=== PATIENT | female | born 1950 | race Caucasian/White ===

== ENCOUNTER → 2020-05-18 12:27 | Outpatient (CLI) | payer MEDICARE, SELFPAY ==
--- NOTE | 2020-05-18 12:34 | XR_ITS ---
PROCEDURE: XR CHEST 2V CLINICAL HISTORY: SCREENING FOR LUNG CA COMPARISON: No exams were available for comparison FINDINGS: The cardiomediastinal silhouette and pulmonary vascularity are within normal limits. The lungs are clear without infiltrates, suspicious nodules, or pleural effusions. There is calcified granuloma in the right middle lobe. No acute bony findings. IMPRESSION: No acute findings. Dictated by: Jesse Esqueda MD 05/18/2020 13:49 Jesse Esqueda MD in [place] 05/18/2020 13:49
== END ==
PROVIDERS: PCP Nurse Practitioner Family; Visit Provider Nurse Practitioner Family
DX: Z12.2 Encounter for screening for malignant neoplasm of respiratory organs (principal)
CPT/HCPCS: 71046

== ENCOUNTER → 2021-03-14 10:09 | Outpatient (CLI) | payer MEDICARE, SELFPAY ==
--- NOTE | 2021-03-14 10:18 | US_ITS ---
APPROVED REPORT Exam Type: Ankle to Brachial Index Hoof And Shoe Inspector: RT Yefri(R) Indications HLD Pressures/Indices Right Indices Left Indices Brachial 155.00 mmHg Brachial 158.00 mmHg Low Thigh 164.00 mmHg 1.04 Low Thigh 148.00 mmHg 0.94 Calf 178.00 mmHg 1.13 Calf 177.00 mmHg 1.12 Ankle(PT) 171.00 mmHg 1.08 Ankle(PT) 193.00 mmHg 1.22 Ankle(DP) 163.00 mmHg 1.03 Ankle(DP) 176.00 mmHg 1.11 Digit 98.00 mmHg 0.62 Digit 113.00 mmHg 0.72 Findings RT RONNY=1.08 LT RONNY=1.22 RT TPI=0.62 LT TPI=0.72 Normal pulses and waveforms throughout exam. Conclusion RT RONNY=1.08 LT RONNY=1.22 RT TPI=0.62 LT TPI=0.72 Normal pulses and waveforms throughout exam. Normal appearing resting noninvasive lower extremity arterial study. Electronically signed by : Jesse Esqueda MD 03/14/2021 17:13:35
== END ==
PROVIDERS: PCP Nurse Practitioner Family; Visit Provider Nurse Practitioner Family
DX: I73.9 Peripheral vascular disease, unspecified (principal)
CPT/HCPCS: 93923

== ENCOUNTER → 2021-05-22 13:10 | Outpatient (POV) | payer MEDICARE, SELFPAY | PROVIDERS: Visit Provider Dermatology | DX: Z00.00 Encounter for general adult medical examination without abnormal findings (principal) ==

== ENCOUNTER 2022-01-07 10:11 | Emergency (ER) | payer MEDICARE, SELFPAY ==
--- NOTE | 2022-01-07 10:42 | EXP.UTC ---
Discharge Plan Disposition Patient Disposition: Home, Self-Care Condition: Good Prescriptions Prescriptions: New benzonatate [benzonatate] 100 mg capsule 100 mg PO TIDP PRN (Reason: Cough) Qty: 30 0RF No Action sertraline [Zoloft] 100 MG tablet 75 mg PO DAILY simvastatin [Zocor] 40 MG tablet 40 mg PO DAILY levothyroxine [Synthroid] 75 MCG tablet 75 mcg PO DAILY ranitidine HCl [Zantac Maximum Strength] 150 MG tablet 150 mg PO DAILY progesterone micronized 200 MG capsule 200 mg PO DAILY estradiol 0.5 MG tablet 0.5 mg PO WEEKLY propranolol [Inderal XL] 80 MG capsule,extended release 24hr 80 mg PO DAILY Referrals Follow up/Referrals: Jamilah Vanegas APRN [Primary Care Provider] - See instructions Activity Restrictions/Add. Instructions Additional Instructions/Restrictions: Drink plenty of fluids. Take tylenol for pain or fever. Take the medications as directed. Follow up with your regular doctor. GO TO THE ER FOR ANY WORSENING SYMPTOMS Clinical Impressions Clinical Impression: COVID-19 Instructions Patient Instructions: Coronavirus Disease 2019, Preventing the Spread of Coronavirus Discharge Instructions Discharge ED Provider: Archie Stroud [facility] General Stated complaint: covid +, sore throat, congestion, cough Time Seen by Provider: 01/07/22 10:42 History of Present Illness Provider Complaint: She is here to have a covid-19 test to confirm a positive covid-19 test at home Related Data Home Medications Medication Instructions Recorded Confirmed estradiol 0.5 mg tablet 0.5 mg PO WEEKLY HORMONE REPLACE 07/17/18 07/17/18 levothyroxine 75 mcg tablet 75 mcg PO DAILY THYROID 07/17/18 07/17/18 (Synthroid) progesterone micronized 200 mg 200 mg PO DAILY HORMOBES 07/17/18 07/17/18 capsule propranolol 80 mg capsule,extended 80 mg PO DAILY RAPID hr 07/17/18 07/17/18 release 24 hr (Inderal XL) ranitidine HCl 150 mg tablet 150 mg PO DAILY GERD 07/17/18 07/17/18 (Zantac Maximum Strength) sertraline 100 mg tablet (Zoloft) 75 mg PO DAILY Depression 07/17/18 07/17/18 simvastatin 40 mg tablet (Zocor) 40 mg PO DAILY Cholesterol 07/17/18 07/17/18 Previous Rx's Medication Instructions Recorded benzonatate 100 mg capsule 100 mg PO TIDP PRN Cough #30 caps 01/07/22 Allergies Allergy/AdvReac Type Severity Reaction Status Date / Time erythromycin base Allergy Verified 07/17/18 11:22 Penicillins Allergy Verified 07/17/18 11:22 [facility] Social History Smoking Status: Former smoker alcohol intake: never current occupational status: employed Travel in the last 8 weeks: None caffeine: Yes ROS Obtained: Yes All systems reviewed & no additional complaints except as documented Constitutional Constitutional: Reports system reviewed and no additional complaints, except as documented, Denies chills and Denies fever(s) Eyes Eyes: Denies eye discharge ENT Ears, Nose, Mouth, and Throat: Denies dysphagia, Denies sore throat and Denies throat swelling Cardiovascular Cardiovascular: Denies chest pain and Denies dyspnea Respiratory Respiratory: Denies chest congestion, Denies cough and Denies dyspnea Gastrointestinal Gastrointestingal: Denies abdominal pain, constipation, diarrhea, dysphagia, nausea or vomiting Musculoskeletal Musculoskeletal: Denies arthralgias Integumentary/Breasts Skin/Breast: Denies rash Neurologic Neurologic: Denies paresthesias Allergic/Immunologic Allergic/Immunologic: Denies throat swelling Physical Exam General General appearance: alert and in no apparent distress Head Head exam: atraumatic, normocephalic and normal inspection Eye Eye exam: Present normal appearance, PERRL and EOMI ENT ENT exam: Present normal exam, normal oropharynx, mucous membranes moist, TM's normal bilaterally and normal external ear exam Neck Neck exam: Present carol
[2022-01-07 11:04] VITALS: BP 174/74; PULSE 63; RESP 18; TEMP 36.7; O2SAT 99; BMI 24.7
[2022-01-07 11:15] VITALS: BP 174/74; PULSE 63; RESP 18; TEMP 36.7
[2022-01-07 11:18] LABS: UTC Strep Screen (Rapid) Negative (Negative)
== END 2022-01-07 11:17 | disposition home or self-care (01) ==
PROVIDERS: Emergency Provider Nurse Practitioner Family; PCP Nurse Practitioner Family
DX: U07.1 COVID-19 (principal)
CPT/HCPCS: 87880; 99212; G0463

== ENCOUNTER 2023-06-09 13:14 | Outpatient (CLI) | payer MEDICARE, SELFPAY ==
[2023-06-09 13:30] LABS: Basophils % 0.6 % (0.1-2.0); Eosinophils # 0.1 K/mm3 (0.0-0.4); Eosinophils % 0.9 % (0.1-12.0); Hematocrit 38.7 % (37.0-47.0); Hemoglobin 13.1 g/dL (12.2-16.2); Lymphocytes # 1.9 K/mm3 (0.7-4.5); Lymphocytes % 32.1 % (10-50); Mean Corpuscular HGB Conc 33.8 g/dL (31.8-35.4); Mean Corpuscular Hemoglobin 30.5 pg (27.0-31.2); Mean Corpuscular Volume 90.4 fl (81-99); Mean Platelet Volume 7.3 fl (7.4-10.4); Monocytes # 0.3 K/mm3 (0.1-1.0); Monocytes % 5.4 % (1.7-9.3); Neutrophils # 3.7 K/mm3 (1.8-7.8); Platelet Count 237 K/mm3 (142-424); Red Blood Count 4.28 M/mm3 (4.20-5.40); Red Cell Distribution Width 14.4 % (11.5-17.5)
[2023-06-09 14:12] LABS: Alanine Aminotransferase 20 U/L (12-78); Albumin Level 4.2 g/dl (3.5-5.0); Albumin/Globulin Ratio 1.4 (1.1-1.8); Alkaline Phosphatase 69 U/L (38-126); Anion Gap 8.9 mEq/L (5-15); Aspartate Amino Transferase 24 U/L (14-36); Bilirubin,Total 0.5 mg/dl (0.2-1.3); Blood Urea Nitrogen 13 mg/dl (7-17); Calcium 9.1 mg/dl (8.4-10.2); Carbon Dioxide 29 mmol/L (22.0-30.0); Chloride 105 mmol/L (98-107); Chol/HDL Ratio 3.5 (1-3.5); Cholesterol 211 mg/dl (140-200); Estimated Glomerular Filt Rate 62 ml/min (>60); GFR (African American) 75 ML/MIN (>60); Globulin 2.9 g/dL (1.3-3.2); Glucose 89 mg/dl (74-100); HDL Cholesterol 60 mg/dl (40-60); Potassium 4.9 mmoL/L (3.5-5.1); Sodium 138 mmol/L (136-145); Total Protein,Serum 7.1 g/dl (6.3-8.2); Triglycerides 137 mg/dl (30-150); VLDL Cholesterol 27 mg/dL (0-40)
[2023-06-09 14:22] LABS: Direct LDL Cholesterol 100.08 mg/dL (100-129)
[2023-06-09 14:30] LABS: Free T4 (Free Thyroxine) 1.32 ng/dl (0.78-2.19)
[2023-06-09 14:44] LABS: Thyroid Stimulating Hormone 1.67 uIU/mL (0.465-4.68)
== END 2023-06-09 23:59 ==
LOC: LAB.DROPOF 13:15
PROVIDERS: PCP Nurse Practitioner Family; Visit Provider Nurse Practitioner Family
DX: E78.5 Hyperlipidemia, unspecified (principal); E03.9 Hypothyroidism, unspecified; Z13.0 Encounter for screening for diseases of the blood and blood-forming organs and certain disorders involving the immune mechanism
CPT/HCPCS: 80053; 80061; 84439; 84443; 85025

== ENCOUNTER 2023-07-02 18:10 | Outpatient (CLI) | payer MEDICARE, SELFPAY | END 2023-07-02 23:59 | LOC: LAB.DROPOF 18:10 | PROVIDERS: PCP Nurse Practitioner Family; Visit Provider Nurse Practitioner Family | DX: R30.0 Dysuria (principal); R35.0 Frequency of micturition; B96.29 Other Escherichia coli [E. coli] as the cause of diseases classified elsewhere | CPT/HCPCS: 87086 ==

== ENCOUNTER 2024-01-07 13:24 | Outpatient (CLI) | payer MEDICARE, SELFPAY | END 2024-01-07 23:59 | disposition home or self-care (01) | LOC: LAB.DROPOF 13:24 | PROVIDERS: PCP Nurse Practitioner Family; Visit Provider Nurse Practitioner Family | DX: R39.89 Other symptoms and signs involving the genitourinary system (principal); R30.0 Dysuria; R35.0 Frequency of micturition | CPT/HCPCS: 87086; 87088 ==

== ENCOUNTER 2024-01-26 13:46 | Outpatient (CLI) | payer MEDICARE, SELFPAY ==
[2024-01-26 12:43] LABS: Microscopic, Urine URINE MICROSCOPIC (MICROSCOPIC)
[2024-01-26 13:03] LABS: Appearance,Urine SL CLOUDY (Clear); Bilirubin,Urine Negative (Negative); Blood, Urine Negative (Negative); Color,Urine YELLOW (Yellow); Glucose,Urine (UA) Negative (Negative); Ketones,Urine Negative (Negative); Leukocyte Esterase,Urine Negative (Negative); Nitrate,Urine Negative (Negative); PH,Urine 6.5 (5.0-8.5); Protein,Urine Negative (Negative); Specific Gravity, Urine 1.025 (1.005-1.030); Urobilinogen,Urine 0.2 EU/dl (0.2)
[2024-01-26 14:13] LABS: Bacteria,Urine Trace /lpf; WBC,Urine Occasional #/hpf (0-3)
== END 2024-01-26 23:59 | disposition home or self-care (01) ==
LOC: LAB.DROPOF 13:47
PROVIDERS: PCP Nurse Practitioner Family; Visit Provider Nurse Practitioner Family
DX: N39.0 Urinary tract infection, site not specified (principal)
CPT/HCPCS: 81001; 87086

== ENCOUNTER 2024-02-02 07:26 | Day surgery (SDC) | payer MEDICARE, SELFPAY ==
[2024-01-26 09:45] VITALS: BMI 23.9
[2024-02-02 07:48] VITALS: BP 147/78; PULSE 75; RESP 16; TEMP 36.6; O2SAT 98
[2024-02-02] MEDS: LACTATED RINGERS 1000ML 1,000 ML 25 ML IV (07:48)
[2024-02-02 08:15] VITALS: O2SAT 98
--- NOTE | 2024-02-02 08:18 | P.PNANES_ITS ---
[facility] Disclaimer: The information contained in this section may have been updated after the patient was seen, as this information can be updated by other users. Medical History COVID-19 LOM (left otitis media) Anxiety Chronic GERD Tachycardia Surgical History H/O colonoscopy Family History Mother Heart attack Father Leukemia Social History Smoking Status: Former smoker alcohol intake: never substance use type: denies use current occupational status: employed Travel in the last 8 weeks: None caffeine: Yes [facility] Anesthesia Checklist Patient Identification Patient Identification: Arm Band and Verbal (Name & ) Structural Data Admitted From: Home Planned Operative Procedure/s: Colonoscopy Consent for Planned Operative Procedure(s) Verified: Yes Verified Documents: Surgical Consent and History and Physical NPO Status Verified Time NPO: 00:00 Additional verifications Anesthesia Reactions: No Hx Blood Transfusions: No Blood Transfusion Reaction: No Airway Assessment Mallampati Score:: Class II C-Spine Mobility Assessed: Yes TMJ Mobility Assessed: Yes Dentition: Good Dentition Neurological Assessment Level of Consciousness: Awake Hx Seizures: No Numbness or tingling in extremities: No Anesthesia Plan Anesthesia Risk discussed: Yes Anesthesia Plan: Verified ASA Class: II Anesthesia Type: MAC
--- NOTE | 2024-02-02 08:20 | P.HP_ITS ---
History of Present Illness *Admission Date: 02/02/24 *Reason for visit:: Screening *History of present illness: is a 73-year-old female who is here for screening colonoscopy secondary to a personal history of colon polyps. The examination is deemed medically necessary for colonoscopy. The patient has been seen, interviewed and examined prior to the procedure by both myself and the anesthesia provider. [facility] Disclaimer: The information contained in this section may have been updated after the patient was seen, as this information can be updated by other users. Medical History COVID-19 LOM (left otitis media) Anxiety Chronic GERD Tachycardia Surgical History H/O colonoscopy Family History Mother Heart attack Father Leukemia Social History (Updated 02/02/24 @ 08:20 by Lilly Meeks CRNA) Smoking Status: Former smoker alcohol intake: never substance use type: denies use current occupational status: employed Travel in the last 8 weeks: None caffeine: Yes Review of Systems Review of Systems Review of systems (narrative): Negative *Cardiovascular Comments: Negative *Gastrointestinal Comments: Negative *Genitourinary Comments: Negative *Musculoskeletal Comments: Negative *Neurologic Comments: Negative Meds Home Medications and Allergies Home Medications ?Medication ?Instructions ?Recorded ?Confirmed ?Type progesterone micronized 200 mg 200 mg PO DAILY HORMOBES 07/17/18 02/02/24 His tory capsule estradiol 0.05 mg/24 hr semiweekly 1 patch transdermal .biweekly 06/09/23 02/02/24 History transdermal patch levothyroxine 75 mcg tablet 75 mcg PO DAILY THYROID 90 days 06/27/23 02/02/24 Rx (Synthroid) #90 tabs omeprazole 20 mg capsule,delayed 20 mg PO DAILY 90 days #90 caps 06/27/23 02/02/24 Rx release propranolol 80 mg capsule,24 80 mg PO DAILY 90 days #90 caps 06/27/23 02/02/24 Rx hr,extended release simvastatin 40 mg tablet (Zocor) 40 mg PO DAILY Cholesterol 90 days 06/27/23 02/02/24 Rx #90 tabs sertraline 50 mg tablet 75 mg (1.5 x 50 mg) PO DAILY 90 07/30/23 02/02/24 Rx days #135 tabs phenazopyridine 100 mg tablet 100 mg PO TID PRN pain #20 tabs 01/07/24 02/02/24 Rx (Pyridium) New Prescriptions to Start Prescriptions: Allergies Allergy/AdvReac Type Severity Reaction Status Date / Time erythromycin base Allergy Nausea Verified 02/02/24 07:44 Penicillins Allergy Hives Verified 02/02/24 07:44 Exam Data for Last 24 hours Vital signs and Labs for Last 24 Hours: Temp Pulse Resp BP Pulse Ox O2 Del Method 97.9 F 75 16 147/78 H 98 Room Air 02/02/24 07:48 02/02/24 07:48 02/02/24 07:48 02/02/24 07:48 02/02/24 07:48 02/02/24 07:48 *Routine HEENT Exam Head: Present normocephalic Eye: Present EOMI and PERRL ENT: Present mucous membranes moist *Routine Neck Exam Neck: Present supple *Routine Respiratory Exam Respiratory: Present CTA bilaterally *Routine Cardiovascular Exam Cardiovascular: Present RRR *Routine Abdominal Exam Abdominal: Present soft and normoactive bowel sounds; Absent tenderness *Routine Rectal Exam Rectal:: deferred *Routine Genitalia Exam Genitalia:: deferred *Routine Extremities Exam Extremities: Absent cyanosis, clubbing or edema *Routine Skin Exam Skin: Present warm; Absent rash *Routine Neurological Exam Neurological: Present alert and oriented X3 Assessment and Plan *Assessment and plan (1) Screening for colon cancer: Status: Acute Category: Medical Code(s): Z12.11 - Encounter for screening for malignant neoplasm of colon (2) Personal history of colonic polyps: Status: Acute Category: Medical Code(s): Z86.010 - Personal history of colonic polyps Plan A/P: 1. Screening/surveillance?personal history of colon polyps is the preprocedural diagnosis. The patient will be anesthetized/sedated using MAC sedation. The patient has been seen and examined. Cardiac and lung assessment prior to the examination is stable. Proceed with planned colonoscopy
--- NOTE | 2024-02-02 08:22 | HMH.PROCNOTE ---
[facility] Procedure Note Date: 02/02/24 Time: 08:22 Procedure Note:: Colonoscopy Procedure Report: Colonoscopy with cold snare polypectomy Endoscopist: Mikael Fisher II, MD Referring physician: TROY Mills Date of Procedure: February 02, 2024 Equipment: Olympus 190 variable stiffness pediatric colonoscope Sedation: MAC sedation Indication: Mrs. Hernandez is a 73-year-old female who is here for follow-up screening/surveillance colonoscopy secondary to a personal history of adenomatous colon polyps. Patient did have colonoscopy in July 2018 and had 2 polyps (tubular adenomas x 2) which were removed. The patient reports no abdominal pain, weight loss, change in her bowel habits or rectal bleeding. She reports no family history of colon cancer. Procedure: Prior to the procedure, a history and physical exam was performed, and patient's medications and allergies were reviewed. The risks, benefits and alternatives of the sedation and procedure were discussed with the patient. All questions were answered and informed consent was obtained. The patient was brought to the procedure room. Patient identification and proposed procedure were verified by the physician and the nurse. The patient was placed in a left lateral decubitus position and the scope was passed under direct vision. Throughout the procedure, the patient's blood pressure, pulse, and oxygen saturations were monitored continuously. The colonoscopy was accomplished without difficulty. The patient tolerated the procedure well. Findings: On digital rectal examination there was normal rectal tone. There were no external hemorrhoids. The colonoscope was introduced through the anal canal to the rectum and advanced to the cecum. The ileocecal valve and appendiceal orifice were identified. The scope was advanced a short distance into the ileum which appeared grossly normal. The scope was then withdrawn into the colon. There were 4 diminutive colon polyps identified in the ascending x 4 (3, 4, 4 and 4 mm). These ranged in size from 3 -4 millimeter and were all removed via cold snare polypectomy. The remaining cecum, ascending, transverse, descending, sigmoid and rectum were grossly normal. There were no other mucosal abnormalities identified. Upon retroflexion within the rectum there were grade 1-2 internal hemorrhoids with small hypertrophied anal papilla.The preparation was excellent throughout with Reedy Preparation Score of 9. The cecal time was 11 minutes. Impression: 1. Diminutive colonic polyps x 4 2. Grade 1-2 internal hemorrhoids with small hypertrophied anal papilla Plan: I will follow up the polyp pathology and consider repeat colonoscopy again in 5 years based upon the polyp histology. This will certainly be based upon her good health and desire to continue preventive surveillance. I would encourage fiber supplementation on a long-term daily maintenance basis.
[2024-02-02 08:41] VITALS: BP 84/51; PULSE 69; RESP 16; TEMP 36.2; O2SAT 97
[2024-02-02 08:51] VITALS: BP 100/45; PULSE 67; RESP 16; O2SAT 96
[2024-02-02 09:01] VITALS: BP 116/65; PULSE 69; RESP 16; O2SAT 99
[2024-02-02 09:11] VITALS: BP 102/55; PULSE 67; RESP 18; TEMP 36.2; O2SAT 98
== END 2024-02-02 09:11 | disposition home or self-care (01) ==
PROVIDERS: PCP Nurse Practitioner Family; Visit Provider Internal Medicine Gastroenterology
PROC: (CPT 45385; principal; 2024-02-02 08:30)
DX: Z86.010 Personal history of colon polyps (principal); K63.5 Polyp of colon; K64.8 Other hemorrhoids
CPT/HCPCS: 45385; 88305; 99221; J7120

== ENCOUNTER 2024-08-02 10:05 | Outpatient (CLI) | payer MEDICARE, SELFPAY ==
--- NOTE | 2024-08-02 10:07 | XR_ITS ---
FINAL REPORT CLINICAL HISTORY: bilateral knee pain FINDINGS: LEFT KNEE 3 views of the left knee were obtained. There is no acute fracture or dislocation. There are minimal degenerative changes of the medial compartment. Visualized joint spaces are normally aligned. Soft tissues are unremarkable. IMPRESSION: No acute bony abnormality. Reviewed, Interpreted and Dictated by Lala Sinclair MD Transcribed by Tomasa Forrest Authenticated and [facility]
--- NOTE | 2024-08-02 10:07 | XR_ITS ---
FINAL REPORT CLINICAL HISTORY: right anterior shoulder pain nki FINDINGS: RIGHT SHOULDER Three views demonstrate no acute fracture or dislocation. The visualized joint spaces are normally aligned. The soft tissues are unremarkable. IMPRESSION: No acute process. Reviewed, Interpreted and Dictated by Lala Sinclair MD Transcribed by Tomasa Forrest Authenticated and [facility]
--- NOTE | 2024-08-02 10:07 | XR_ITS ---
FINAL REPORT CLINICAL HISTORY: bilateral knee pain FINDINGS: RIGHT KNEE 3 views of the right knee were obtained. There is no acute fracture or dislocation. Visualized joint spaces are normally aligned. Soft tissues are unremarkable. IMPRESSION: No acute bony abnormality. Reviewed, Interpreted and Dictated by Lala Sinclair MD Transcribed by Tomasa Forrest Authenticated and [facility]
[2024-08-02 13:59] LABS: Basophils % 0.4 % (0.1-2.0); Eosinophils # 0.1 K/mm3 (0.0-0.4); Eosinophils % 1.1 % (0.1-12.0); Hematocrit 36.7 % (37.0-47.0); Hemoglobin 12.2 g/dL (12.2-16.2); Lymphocytes % 22.2 % (10-50); Mean Corpuscular HGB Conc 33.2 g/dL (31.8-35.4); Mean Corpuscular Hemoglobin 30.5 pg (27.0-31.2); Mean Corpuscular Volume 91.8 fl (81-99); Mean Platelet Volume 9.5 fl (7.4-10.4); Monocytes # 0.4 K/mm3 (0.1-1.0); Neutrophils # 3.1 K/mm3 (1.8-7.8); Neutrophils % 68.3 % (37.0-80.0); Platelet Count 225 K/mm3 (142-424); Red Cell Distribution Width 13.6 % (11.5-17.5); White Blood Count 4.5 K/mm3 (4.8-10.8)
[2024-08-02 14:30] LABS: Alanine Aminotransferase 15 U/L (12-78); Albumin/Globulin Ratio 1.4 (1.1-1.8); Alkaline Phosphatase 57 U/L (38-126); Anion Gap 13.6 mEq/L (5-15); Aspartate Amino Transferase 23 U/L (14-36); Bilirubin,Total 0.5 mg/dl (0.2-1.3); Blood Urea Nitrogen 14 mg/dl (7-17); Calcium 9.4 mg/dl (8.4-10.2); Carbon Dioxide 25 mmol/L (22.0-30.0); Chloride 103 mmol/L (98-107); Chol/HDL Ratio 2.8 (1-3.5); Cholesterol 192 mg/dl (140-200); Estimated Glomerular Filt Rate 55 ml/min (>60); GFR (African American) 66 ML/MIN (>60); Globulin 2.9 g/dL (1.3-3.2); Glucose 79 mg/dl (74-100); HDL Cholesterol 68 mg/dl (40-60); Potassium 3.6 mmoL/L (3.5-5.1); Sodium 138 mmol/L (136-145); Total Protein,Serum 6.9 g/dl (6.3-8.2); Triglycerides 154 mg/dl (30-150); VLDL Cholesterol 31 mg/dL (0-40)
[2024-08-02 14:41] LABS: Direct LDL Cholesterol 79.65 mg/dL (100-129)
[2024-08-02 14:46] LABS: 25-OH Vitamin D, Total 18.3 ng/mL (30-100)
[2024-08-02 14:49] LABS: Free T4 (Free Thyroxine) 1.44 ng/dl (0.78-2.19)
[2024-08-02 15:02] LABS: Thyroid Stimulating Hormone 1.31 uIU/mL (0.465-4.68)
[2024-08-02 15:13] LABS: HIV Combo NEGATIVE (Negative)
[2024-08-02 15:21] LABS: Hepatitis C Ab Qual. W/ RFX NEGATIVE (Negative); Vitamin B12 248 pg/mL (239-931)
== END 2024-08-02 23:59 | disposition home or self-care (01) ==
LOC: RAD 10:06
PROVIDERS: PCP Nurse Practitioner Family; Visit Provider Nurse Practitioner Family
DX: M25.561 Pain in right knee (principal); M25.562 Pain in left knee; M25.511 Pain in right shoulder; E78.00 Pure hypercholesterolemia, unspecified; Z11.59 Encounter for screening for other viral diseases; M85.80 Other specified disorders of bone density and structure, unspecified site; Z11.4 Encounter for screening for human immunodeficiency virus [HIV]; E03.9 Hypothyroidism, unspecified; I10 Essential (primary) hypertension
CPT/HCPCS: 73030; 73562; 80053; 80061; 82306; 82607; 84439; 84443; 85025; 86803; 87389

== ENCOUNTER 2024-08-09 15:05 | Outpatient (CLI) | payer MEDICARE, SELFPAY ==
--- NOTE | 2024-08-09 15:30 | US_ITS ---
FINAL REPORT TECHNIQUE: Real-time grayscale and color ultrasound of the soft tissues of the neck was performed. CLINICAL HISTORY: left posterior lymphadenopathy, pain along SCM COMPARISON: None FINDINGS: Ultrasound images of the area of concern were obtained. Color Doppler images were submitted. There are few scattered lymph nodes in the neck bilaterally measuring up to about 1 cm. Bilateral parotid/submandibular glands are within normal limits. No obvious masses identified. IMPRESSION: Scattered bilateral lymph nodes up to 1 cm. If suspicion/pain persists, infused neck CT could be considered. Reviewed, Interpreted and Dictated by Amando Wilcox MD Transcribed by Carolina Tabares Authenticated and [facility]
== END 2024-08-09 23:59 | disposition home or self-care (01) ==
LOC: RAD 15:06
PROVIDERS: PCP Nurse Practitioner Family; Visit Provider Nurse Practitioner Family
DX: R59.1 Generalized enlarged lymph nodes (principal)
CPT/HCPCS: 76536

== ENCOUNTER 2024-08-27 09:31 | Outpatient (CLI) | payer MEDICARE, SELFPAY ==
--- NOTE | 2024-08-27 09:45 | CT_ITS ---
FINAL REPORT TECHNIQUE: Thin section axial CT images with coronal and sagittal reformats were obtained through the neck after the administration of IV contrast. This study was performed with techniques to keep radiation doses as low as reasonably achievable (ALARA). Individualized dose reduction techniques using automated exposure control or adjustment of mA and/or kV according to the patient's size were employed. CLINICAL HISTORY: lymphadenopathy COMPARISON: None FINDINGS: CT NECK SOFT TISSUE WITH AND WITHOUT CONTRAST: CT examination of the soft tissues of the neck was performed using axial pre and postcontrast enhanced images. Multiplanar reconstructions were formatted as well. The nasopharynx, oropharynx, larynx, and hypopharynx are unremarkable in appearance. The salivary glands appear unremarkable. There are small bilateral cervical nodes present, nonspecific, and subcentimeter. No other focal mass is identified in the soft tissues of the neck. There is vascular calcification noted in the proximal left subclavian artery, the distal right common carotid artery, and the distal external carotid artery on the left. IMPRESSION: Multiple small nonspecific cervical nodes are noted, subcentimeter. Vascular calcification as described above. Reviewed, Interpreted and Dictated by Amando Wilcox MD Transcribed by Reyna Peck Authenticated and [facility]
[2024-08-27] MEDS: SODIUM CHLORIDE 0.9% 10ML SYR (RAD ONLY) 10 ML IV (09:46)
[2024-08-27] MEDS: IOPAMIDOL-370 (76%);100ML BOTTLE 75 ML IV (09:47)
== END 2024-08-27 23:59 | disposition home or self-care (01) ==
LOC: RAD 09:31
PROVIDERS: PCP Nurse Practitioner Family; Visit Provider Nurse Practitioner Family
DX: R59.1 Generalized enlarged lymph nodes (principal)
CPT/HCPCS: 70492; Q9967

== ENCOUNTER 2024-09-28 13:02 | Outpatient (CLI) | payer MEDICARE, SELFPAY ==
--- NOTE | 2024-09-28 13:00 | CA_ITS ---
FINAL REPORT TECHNIQUE: Bradshaw scale, color and spectral doppler images of the bilateral carotid arteries were obtained. CLINICAL HISTORY: Abn neck screening, Family HX-CAD, Left neck pain COMPARISON: None FINDINGS: Peak systolic velocity in the right internal carotid artery is 251 cm/sec. The internal carotid to common carotid artery ratio is 4.4. There 50 to 69% carotid artery stenosis and moderate plaque formation. The right vertebral artery is normal in direction. Peak systolic velocity in the left internal carotid artery is 145 cm/sec. The internal carotid to common carotid artery ratio is 2. There is less than 50% carotid artery stenosis and moderate plaque formation. The left vertebral artery is normal in direction. IMPRESSION: Right carotid artery 50 to 69% stenosis with moderate plaque formation. Less than 50% left carotid artery stenosis, with moderate plaque formation. Antegrade flow bilateral vertebral arteries. Reviewed, Interpreted and Dictated by Amando Wilcox MD Transcribed by Reyna Peck Authenticated and [facility]
== END 2024-09-28 23:59 | disposition home or self-care (01) ==
LOC: RT 13:02
PROVIDERS: PCP Nurse Practitioner Family; Visit Provider Nurse Practitioner Family
DX: I65.23 Occlusion and stenosis of bilateral carotid arteries (principal); R93.89 Abnormal findings on diagnostic imaging of other specified body structures; M54.2 Cervicalgia; Z82.49 Family history of ischemic heart disease and other diseases of the circulatory system
CPT/HCPCS: 93880

== ENCOUNTER 2024-09-28 13:03 | Outpatient (CLI) | payer SELFPAY ==
--- NOTE | 2024-09-28 13:45 | CT_ITS ---
APPROVED REPORT Stringed Instrument Assembler: CLINICAL INDICATION Coronary risk evaluation and stratification TECHNIQUE Image Acquisition: A 128 slice MDCT scanner (BrandProject[employer] View) was used for data acquisition. A noncontrast coronary calcium scan was performed. A CT attenuation threshold of 130 Hounsfield units (HU) was used for the detection of calcium in contiguous voxels of 1 sq mm in area to be counted as individual lesions. A tube voltage of 120 KVp was used. The patient received no medications prior to the coronary calcium CT. Image Reconstruction Transaxial images were reconstructed at 0.67 mm slide thickness. Data was reviewed interactively on an advanced workstation capable of 2 and 3-dimensional displays in all conventional reconstruction formats, including multiplanar reformations, maximum intensity projections, curved multiplanar reformations, and volume rendered reconstructions. When applicable, selected routine images describing the relevant coronary anatomy and pathology were saved and sent to PACS. Complications None Technical Quality Overall image quality was good. Total DLP (Dose-Length Product) is 179.9 mGy-cm. The reported value represents the total of one or more individual components during the CT acquisition of this date and at this time, and as such, the same value may appear in more than one CT report depending on the interpreting/reporting physicians. COMPARISON None FINDINGS CT Coronary Calcium Scoring LMA (Left Main Artery) = 0 LAD (Left Anterior Descending) = 11 LCX (Left Coronary Circumflex) = 0 RCA (Right Coronary Artery) = 142 Total Calcium Score = 153 using the AJ-130 method. There is also mild calcification in the descending thoracic aorta. IMPRESSION -Coronary artery calcification is present. -Total Calcium Score (Agatston Score) = 153 using the AJ-130 method. -The observed calcium score of 153 is at 74th percentile for subjects of the same age, sex, and race/ethnicity. -Mild calcification in the descending thoracic aorta. The interpretation of the calcium heart score is based on the following continuum*: 0 = no calcified plaque detected (risk of coronary artery disease is very low ??? less than 5%) 1-10 = calcium detected in extremely minimal levels (risk of coronary diseases is still low ??? less than 10%) 11-100 = mild levels of plaque detected with certainty (mild or minimal narrowing of heart arteries is likely) 101-400 = definite,at least moderate levels of plaque detected (relatively high risk of a heart attack within 3-5 years) >401-999 = extensive levels of plaque detected (high risk of heart attack, high levels of vascular disease are present, high likelihood of at least one significant coronary narrowing) *The calcium heart score quantifies the burden of coronary calcification/plaque in the coronary arteries. The calcium heart score does not evaluate the presence or the burden of non-calcified (i.e. soft) plaque. The coronary and cardiac findings of this Coronary Calcium CT were reviewed, reported, and signed by Andre Osborne MD (Terminal Superintendent). Conclusion Electronically signed by : Nancy Osborne MD 10/04/2024 13:02:17
== END 2024-09-28 23:59 | disposition home or self-care (01) ==
LOC: RAD 13:04
PROVIDERS: PCP Nurse Practitioner Family; Visit Provider Nurse Practitioner Family
DX: I25.10 Atherosclerotic heart disease of native coronary artery without angina pectoris (principal); I65.29 Occlusion and stenosis of unspecified carotid artery; I70.0 Atherosclerosis of aorta
CPT/HCPCS: 75571

== ENCOUNTER 2024-10-27 07:38 | Outpatient (CLI) | payer MEDICARE, OTHER, SELFPAY ==
--- OUTSIDE RECORDS SUMMARY | 2024-10-27 07:41 | XMS_ITS | Patient Health Record ---
Author Organization [facility] Address [address] [place] [address] Care Team Providers Care Tanning Salon Attendant Name Role Phone Doris Valenzuela Unavailable [phone] Allergies Allergen (clinical drug ingredient) Drug/Non Drug Allergy documented on EMR Reaction Allergy Type Onset Date Status PENICILLIN V POTASSIUM (PENICILLIN V POTASSIUM TAB Unspecified Drug Allergy 05/29/2020 Active Reason For Referral No Information Problems Problem Type SNOMED Code ICD Code Onset Dates Problem Status W/U Status Risk Notes Problem Cervical smear, as part of routine gynecological examination (Z01.419) Active confirmed Annual without abnormal findings Plan Of Treatment No Information Medical (General) History Medical History History ICD Code Acid reflux anxiety depression heart disease (rapid heartbeat) hypothyroid osteopenia MENSTR FLOW: Medium ESTRADIOL 0.05 MG/24HR TRANSDERMAL PATCH TWICE WEEKLY, TRANS LEVOTHYROXINE SODIUM 75 MCG ORAL TABLET, ORAL PROGESTERONE MICRONIZED 200 MG ORAL CAPS ULE, ORAL PROPRANOLOL HCL 80 MG ORAL TABLET, ORAL SERTRALINE HCL 50 MG ORAL TABLET, ORAL SIMVASTATIN 40 MG ORAL TABLET, ORAL
[2024-10-27 08:07] VITALS: BMI 24.7
[2024-10-27 08:14] VITALS: BP 153/75; PULSE 61; RESP 18; TEMP 36.2; O2SAT 100
--- NOTE | 2024-10-27 08:30 | CT_ITS ---
FINAL REPORT CLINICAL HISTORY: ALISHA COMPARISON: 09/28/2024 FINDINGS: CT NECK ANGIO, WITHOUT AND WITH CONTRAST TECHNIQUE: Thin section axial CT with contrast with multiplanar 3D MIP reconstruction. This study was performed with techniques to keep radiation doses as low as reasonably achievable, (ALARA). Individualized dose reduction techniques using automated exposure control or adjustment of mA and/or kV according to the patient''s size were employed. NASCET criteria and technique was utilized during interpretation. FINDINGS: Aortic arch: Arch shows no significant narrowing. Great vessel origins are widely patent. Right carotid: There is moderate plaque of the proximal right ICA measuring up to 50% stenosis. Left carotid: No significant stenosis is seen of the cervical common or internal carotid artery. Vertebrals: Left vertebral artery is dominant. No significant stenosis is present. IMPRESSION: Moderate, proximal right ICA stenosis at 50%, similar to prior exam. This study was performed using automated techniques to achieve radiation exposure as low as reasonably Reviewed, Interpreted and Dictated by Lala Sinclair MD Transcribed by Tomasa Forrest Authenticated and [facility]
--- NOTE | 2024-10-27 08:30 | CT_ITS ---
APPROVED REPORT Mail Rider: CLINICAL INDICATION Chest Pain TECHNIQUE Image Acquisition: A 128 slice MDCT scanner ([employer] View) was used for data acquisition. A noncontrast coronary calcium scan was performed. A CT attenuation threshold of 130 Hounsfield units (HU) was used for the detection of calcium in contiguous voxels of 1 sq mm in area to be counted as individual lesions. Bolus tracking in the ascending aorta with a threshold of 180 HU was performed. Immediately afterwards, ECG synchronized cardiac CT was then performed from the cardiac base to apex using retrospective gating with ECG tube current modulation. A total of 85 mL of Isovue 370 mg/mL contrast medium was administered at 5 mL/sec followed by a saline flush using a biphasic injection protocol. A tube voltage of 120 KVp was used. The patient received the following medications prior to the cardiac CT. 0.8 mg of sublingual nitroglycerin The average heart rate at the time of acquisition was 59 bpm and regular. Image Reconstruction Transaxial images were reconstructed at 0.67 mm slide thickness. Data was reviewed interactively on an advanced workstation capable of 2 and 3-dimensional displays in all conventional reconstruction formats, including multiplanar reformations, maximum intensity projections, curved multiplanar reformations, and volume rendered reconstructions. When applicable, selected routine images describing the relevant coronary anatomy and pathology were saved and sent to PACS. Complications None Technical Quality Overall image quality was good. Coronary artery opacification was adequate. Total DLP (Dose-Length Product) is 1575.3 mGy-cm. The reported value represents the total of one or more individual components during the CT acquisition of this date and at this time, and as such, the same value may appear in more than one CT report depending on the interpreting/reporting physicians. COMPARISON CT calcium score performed on 09/28/[address] Coronary Calcium Scoring LMA (Left Main Artery) = 0 LAD (Left Anterior Descending) = 11 LCX (Left Coronary Circumflex) = 0 RCA (Right Coronary Artery) = 142 Total Calcium Score = 153 using the AJ-130 method. The observed calcium score of 153 is at 74th percentile for subjects of the same age, sex, and race/ethnicity. The interpretation of the calcium heart score is based on the following continuum*: 0 = no calcified plaque detected (risk of coronary artery disease is very low ??? less than 5%) 1-10 = calcium detected in extremely minimal levels (risk of coronary diseases is still low ??? less than 10%) 11-100 = mild levels of plaque detected with certainty (mild or minimal narrowing of heart arteries is likely) 101-400 = definite,at least moderate levels of plaque detected (relatively high risk of a heart attack within 3-5 years) >401-999 = extensive levels of plaque detected (high risk of heart attack, high levels of vascular disease are present, high likelihood of at least one significant coronary narrowing) *The calcium heart score quantifies the burden of coronary calcification/plaque in the coronary arteries. The calcium heart score is not able to evaluate the presence or burden of non-calcified (i.e. soft) plaque. There is calcification present in the descending thoracic aorta. Coronary CT Angiography The coronary arterial system is right dominant. Quantitative Stenosis Grading: Left Main (LM): The left main originates normally from the left sinus of Valsalva. The LM bifurcates into the left anterior descending artery and left circumflex artery. The LM is patent with no evidence of atherosclerosis. Left Anterior Descending (LAD) and Diagonal Branches: The LAD gives off 2 diagonal branch(es). There is mixed calcified/noncalcified plaque in the proximal LAD segment, with up to 25-49% luminal stenosis. There is no evidence of LAD-myocardial bridge. Left Circumflex (LCX) and Obtuse Marginals (OM): The LCX gives off 1 Obtuse Marginal (OM) branch(es). The LCX and its branches are patent with no evidence of atherosclerosis. Right Coronary Artery (RCA): The RCA originates normally from the right sinus of Valsalva. The RCA gives off a posterior descending artery (PDA) and posterolateral (PL) branches. There is mixed calcified/noncalcified plaque in the distal RCA segment, with up to 25-49% luminal stenosis. Non-Coronary Cardiac Findings: Analysis of the left ventricular (LV) structure and function was performed after 3-D reconstruction of the LV from axial images, with user-corrected automatic contouring for assessment of LV volumes and user-defined reconstruction from oblique planes for measurement of 3-D cardiac structure and function. -The left ventricle systolic function is normal. -There is no left atrial appendage filling defect. Two right pulmonary veins and two left pulmonary veins drain normally into the left atrium. -No pericardial thickening or calcification. -Central and branch pulmonary arteries in the [id number] are unremarkable. -Thoracic aorta within the visualized thoracic aortic-branches in the [id number] is unremarkable. Extracardiac Structures No significant extra-cardiac findings. Note, however, that this study is focused on the cardiac findings. IMPRESSION - Presence of coronary calcification with an Agatston score = 153 using the AJ-130 method. The degree of coronary calcification is unchanged from recent calcium score CT performed on 09/28/2024. -The observed calcium score of 153 is at 74th percentile for subjects of the same age, sex, and race/ethnicity. - Mild, nonobstructive atherosclerotic coronary disease in the proximal LAD and distal RCA segments, with no evidence of significant flow-limiting atherosclerosis of the coronary arteries. -CAD-RADS 2. Management recommendations per ACC/AHA guidelines*, as clinically appropriate. -Calcification present in the descending thoracic aorta. *Recommendations: CAD RADS 0: Reassurance. Consider non-atherosclerotic causes of chest pain. CAD RADS 1: Consider non-atherosclerotic causes of chest pain. Consider preventive therapy and risk factor modification. CAD RADS 2: Consider non-atherosclerotic causes of chest pain. Consider preventive therapy and risk factor modification, particularly for patients with nonobstructive plaque in multiple segments. CAD RADS 3: Consider further functional testing. Consider symptom-guided anti-ischemic and preventive pharmacotherapy as well as risk factor modification per published guideline statements. CAD RADS 4A: Consider further functional testing or invasive coronary angiography with revascularization per published guideline statements. Consider symptom-guided anti-ischemic and preventive pharmacotherapy as well as risk factor modification per published guideline statements. CAD RADS 4B: Invasive coronary angiography recommended with revascularization per published guideline statements. Consider symptom-guided anti-ischemic and preventive pharmacotherapy as well as risk factor modification per published guideline statements. CAD RADS 5: Consider invasive angiography and/or viability assessment with revascularization per published guideline statements. Consider symptom-guided anti-ischemic and preventive pharmacotherapy as well as risk factor modification per published guideline statements. CRITICAL RESULT None COMMUNICATION Per this written report The coronary and cardiac findings of this CCTA were reviewed, reported, and signed by Andre Osborne MD (Sql Ssrs Ssis Developer) Conclusion Electronically signed by : Nancy Osborne MD 10/27/2024 23:02:06
[2024-10-27 08:38] LABS: Chloride 98 mmol/L (98-107); Potassium 3.7 mmoL/L (3.5-5.1); Sodium 136 mmol/L (136-145)
[2024-10-27 08:41] LABS: Anion Gap 12.7 mEq/L (5-15); Blood Urea Nitrogen 15 mg/dl (7-17); Calcium 8.9 mg/dl (8.4-10.2); Carbon Dioxide 29 mmol/L (22.0-30.0); Creatinine Clearance Estimated 49 mL/min (50-200); Estimated Glomerular Filt Rate 55 ml/min (>60); GFR (African American) 66 ML/MIN (>60); Glucose 98 mg/dl (74-100)
[2024-10-27 09:08] VITALS: BP 164/84; PULSE 60; RESP 16; O2SAT 100
[2024-10-27 09:13] VITALS: BP 141/72; PULSE 59; RESP 16; O2SAT 100
[2024-10-27 09:16] VITALS: BP 108/56; PULSE 72; RESP 16; O2SAT 98
[2024-10-27] MEDS: IOPAMIDOL-370 (76%);100ML BOTTLE 165 ML IV (09:25)
[2024-10-27] MEDS: SODIUM CHLORIDE 0.9% 10ML SYR (RAD ONLY) 10 ML IV (09:25)
[2024-10-27] MEDS: 0.9 % SODIUM CHLORIDE 50 ML VIAL 100 ML IV (09:25)
[2024-10-27 09:26] VITALS: BP 122/79; PULSE 69; RESP 16; O2SAT 97
--- NOTE | 2024-10-27 11:15 | CA_ITS ---
APPROVED REPORT EXAM: Comprehensive 2D, Doppler, and color-flow Echocardiogram Principal Law Clerk: Naomy Barragan CRT Ht: 5 ft 2 in Wt: 132lbs BSA: 1.60 BP: 153/60 mmHg Indications: Shortness of Breath, Hyperlipidemia, Hypertension/HDD 2D Dimensions LA Volume 26.20 mL LA Volume Index 16.00 mL/m2 (M/F) 16-34 M-Mode Dimensions RVDd 2.42 cm (0.9-2.6) LA Diam 2.81 cm (1.9-4.0) LVDd 3.84 cm (3.5-5.7) LVDs 2.47 cm (3.5-5.7) IVSd 1.19 cm (0.6-1.1) PWd 0.76 cm (0.6-1.1) EF (Teich) 65.80% FS 35.70% EDV (Teich) 63.50 mL TAPSE 2.60 (<1.7) ESV (Teich) 21.70 mL LV Diastology E Decel Time 150 (160-240 msec) E/A Ratio 1.33 MED A' 12.90 cm/s LAT A' 7.20 cm/s Aortic Valve AO Peak GR. 5.60 mmHg Mitral Valve MV E Max Shiva. 75.0 (40-130 cm/s) MV A Velocity 57.0 (40-130 cm/s) E/A Ratio 1.33 MV PHT 44.0 ms Pulmonary Valve PV Peak Velocity 62.0 (50-150 cm/s) Tricuspid Valve TR P. Velocity 317.00 cm/s RAP Estimate 10.00 mmHg RVSP 50.30 mmHg Left Ventricle The left ventricle is normal size. The left ventricular systolic function is normal. The left ventricular ejection fraction is within the normal range. There is increased LV wall thickness. There is normal LV segmental wall motion. The left ventricular diastolic function is normal. LVEF is 60%. Right Ventricle The right ventricle is normal size. The right ventricular systolic function is normal. Atria Left atrium is mildly dilated. Right atrium is mildly dilated. There is no Doppler evidence of interatrial shunt. Aortic Valve The aortic valve is mildly thickened. There is no aortic valvular stenosis. Trace aortic regurgitation. Mitral Valve The mitral valve is normal in structure. No evidence of mitral valve stenosis. Mild mitral regurgitation. Tricuspid Valve Tricuspid valve is grossly normal in structure and function. Mild tricuspid regurgitation. RVP is 20-25 mmHg. Pulmonic Valve The pulmonary valve is normal in structure. Trace pulmonic regurgitation. Great Vessels The aortic root is normal in size. IVC is normal in size and collapses >50% with inspiration. Pericardium There is no pericardial effusion. Other Information Study Quality: Fair Conclusion Normal biventricular systolic function. Mild biatrial dilation. Mild MR, mild TR. Electronically signed by : Nancy Osborne MD 10/30/2024 14:17:08
== END 2024-10-27 09:26 | disposition home or self-care (01) ==
PROVIDERS: PCP Nurse Practitioner Family; Visit Provider Nurse Practitioner
DX: I08.1 Rheumatic disorders of both mitral and tricuspid valves (principal); I11.9 Hypertensive heart disease without heart failure; I65.21 Occlusion and stenosis of right carotid artery; I25.10 Atherosclerotic heart disease of native coronary artery without angina pectoris; E78.00 Pure hypercholesterolemia, unspecified; Z82.49 Family history of ischemic heart disease and other diseases of the circulatory system
CPT/HCPCS: 70498; 75574; 80048; 93306; Q9967

== ENCOUNTER 2025-02-18 01:28 | Emergency (ER) | payer MEDICARE, OTHER, SELFPAY ==
[2025-02-18 01:35] VITALS: BP 185/91; PULSE 67; O2SAT 100
--- OUTSIDE RECORDS SUMMARY | 2025-02-18 01:35 | XMS_ITS | Patient Health Record ---
Author Organization [facility] Address [address] [place] [address] Care Team Providers Care Solar Tech Name Role Phone Doris Valenzuela Unavailable [phone] Allergies Allergen (clinical drug ingredient) Drug/Non Drug Allergy documented on EMR Reaction Allergy Type Onset Date Status PENICILLIN V POTASSIUM (PENICILLIN V POTASSIUM TAB Unspecified Drug Allergy 05/29/2020 Active Reason For Referral No Information Problems Problem Type SNOMED Code ICD Code Onset Dates Problem Status W/U Status Risk Notes Problem Gynecological examination normal ([id number] ) Cervical smear, as part of routine gynecological examination (Z01.419) 05/29/19 21 Active confirmed Annual without abnormal findings Plan [...]
--- OUTSIDE RECORDS SUMMARY | 2025-02-18 01:36 | XMS_ITS | Clinical Summary ---
Author Organization [facility] Address [address] [place] [address] Care Team Providers Care Rn Clinical Review Name Role Phone Jamilah Vanegas APRN Primary Care Provider [phone] Family History Medical History Relation Name Comments Breast cancer Neg Hx Ovarian cancer Neg Hx Social History Tobacco Use Types Packs/Day Years Used Date Smoking Tobacco: Never Assessed Comments No Sex and Gender Information Value Date Recorded Sex Assigned at Not on file Legal Sex Female 11:21 AM EDT Gender Identity Not on file Sexual Orientation Not on file Plan of Treatment Health Maintenance Due Date Last Done Comments ANNUAL PHYSICAL 1950 DXA SCAN 1950 HEPATITIS C SCREENING 1952 TDAP/TD VACCINES (1 - Tdap) 1971 COLOGUARD 1997 COLON CANCER SCREENING 5 YEA R SIGMOIDOSCOPY 1997 COLONOSCOPY 1997 [address]AL CANCER SCREENING 1997 CT COLONOGRAPHY 1997 FECAL OCCULT BLOOD TEST 1997 FIT Testing (1 year) 1997 ZOSTER VACCINE (1 of 2) 2002 INFLUENZA VACCINE 12/03/2024 COVID-19 Vaccine (3 2024-2 6 season) 2025 05/09/2021, 07/12/2020 MAMMOGRAM 05/17/2026 05/17/2024, 01/04, 12/31/2021, Additional history exists Pneumococcal Vaccine 50+ Completed 06/09/2023 Procedures Procedure Name Priority Date/Time Associated Diagnosis Comments MAMMO SCREENING DIGITAL TOMOSYNTHESIS BILATERAL W CAD Routine 05/17/2024 10:03 AM EST Visit for screening mammogram from Last 3 Months or Most Recently Relevant to Health Maintenance Results * Mammo Screening Digital Tomosynthesis Bilateral With CAD (05/17/2024 10:03 AM EST) Anatomical Region Laterality Modality Breast N/A Mammography 05/18/2024 1:01 PM EST Impressions 05/18/2024 1:07 PM EST No suspicious abnormality identified. OVERALL ASSESSMENT: ACR BI-RADS CATEGORY: 1, NEGATIVE: Recommend continued routine annual screening mammogram. The standard false-negative rate of mammography is between 10% and 25%. Complex patterns or increased breast density will markedly elevate the false-negative rate of mammography. A letter, in lay terminology, with the results of this exam will be mailed to the patient. This report was finalized on 05/18/2024 1:07 PM by Augusta Franklin MD. Narrative 05/18/2024 1:07 PM EST BILATERAL DIGITAL SCREENING MAMMOGRAM WITH TOMOSYNTHESIS CLINICAL INDICATION: Screening mammogram. TECHNIQUE: Bilateral low dose full field digital breast tomosynthesis imaging was performed. CAD was utilized. COMPARISON: Prior studies dating back to 08/14/2017 FINDINGS: There are scattered fibroglandular densities. RIGHT BREAST: No suspicious masses, calcifications, or areas of distortion are seen. LEFT BREAST: No suspicious masses, calcifications, or areas of distortion are seen. Sandra Abdi APRN [facility] MAMMOGRAPHY ORDER RUPA Final Result from Last 3 Months or Most Recently Relevant to Health Maintenance Insurance [facility] Medicare Advant[employer] PPO Care Teams Rn Clinical Review Relationship Specialty Start Date End Date Jamilah Vanegas APRN PCP - General Internal Medicine 10/24/20
[2025-02-18 01:37] VITALS: BP 185/91; PULSE 70; RESP 18; TEMP 36.6; O2SAT 96; BMI 23.8
--- NOTE | 2025-02-18 01:38 | CT_ITS ---
PROCEDURE INFORMATION: Exam: CT Cervical Spine Without Contrast Exam date and time: 02/18/2025 2:16 AM Age: 74 years old Clinical indication: Injury or trauma; Additional info: Fall , L eyebrow and nasal bridge injury TECHNIQUE: Imaging protocol: Computed tomography of the cervical spine without contrast. Radiation optimization: All CT scans at this facility use at least one of these dose optimization techniques: automated exposure control; mA and/or kV adjustment per patient size (includes targeted exams where dose is matched to clinical indication); or iterative reconstruction. COMPARISON: CT ANGIO NECK 10/27/2024 9:20 AM FINDINGS: Bones: Straightening of the cervical lordosis. The alignment is otherwise maintained. The vertebral body heights are maintained. No evidence for acute fracture. Endplate degenerative changes are noted at multiple levels, worse at C4-C5, C5-C6, and to a lesser extent C6-C7. No severe spinal canal stenosis. 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 Lungs: Lung apices are normal. Vasculature: There are atherosclerotic calcifications of the carotid bifurcations. Soft tissues: Unremarkable. IMPRESSION: No acute fracture or traumatic malalignment in the cervical spine.
--- NOTE | 2025-02-18 01:38 | XR_ITS ---
PROCEDURE INFORMATION: Exam: XR Left Elbow Exam date and time: 02/18/2025 1:55 AM Age: 74 years old Clinical indication: Pain; Elbow; Left; Additional info: Fall, bursa swelling TECHNIQUE: Imaging protocol: Radiologic exam of the left elbow. Views: 1 or 2 views. COMPARISON: No relevant prior studies available. FINDINGS: Bones/joints: Normal. The joints are well aligned. There is no fracture present. There is no area of lysis. Soft tissues: Normal. IMPRESSION: No fracture or dislocation.
--- NOTE | 2025-02-18 01:38 | CT_ITS ---
PROCEDURE INFORMATION: Exam: CT Maxillofacial Without Contrast Exam date and time: 02/18/2025 2:13 AM Age: 74 years old Clinical indication: Injury or trauma; Additional info: Fall , L eyebrow and nasal bridge injury TECHNIQUE: Imaging protocol: Computed tomography of the face without contrast. Radiation optimization: All CT scans at this facility use at least one of these dose optimization techniques: automated exposure control; mA and/or kV adjustment per patient size (includes targeted exams where dose is matched to clinical indication); or iterative reconstruction. COMPARISON: CT HEAD/BRAIN WO CON 02/18/2025 2:11 AM FINDINGS: Paranasal sinuses: There is mild paranasal sinus disease. Localized mucosal thickening is noted in the sphenoid sinus. Additionally, there is a peripherally calcified focus within the sphenoid sinus that could represent small osteoma. Orbital cavities: The patient is status post cataract extraction. Bones: There could be a nondisplaced or minimally displaced fracture of the left nasal bone. Subtle irregularity of the nasal tip. Can not exclude nondisplaced or minimally displaced fractures. Please correlate with point tenderness. Soft tissues: Small soft tissue swelling/hematoma along the left frontal scalp. No underlying osseous fracture is identified. IMPRESSION: 1. There could be a nondisplaced or minimally displaced fracture of the left nasal bone. Please correlate with point tenderness. Subtle irregularity of the nasal tip. Can not exclude nondisplaced or minimally displaced fractures. Please correlate with point tenderness. 2. Small soft tissue swelling/hematoma along the left frontal scalp. No underlying osseous fractures.
--- NOTE | 2025-02-18 01:38 | CT_ITS ---
PROCEDURE INFORMATION: Exam: CT Head Without Contrast Exam date and time: 02/18/2025 2:11 AM Age: 74 years old Clinical indication: Injury or trauma; Additional info: Fall , L eyebrow and nasal bridge injury TECHNIQUE: Imaging protocol: Computed tomography of the head without contrast. Radiation optimization: All CT scans at this facility use at least one of these dose optimization techniques: automated exposure control; mA and/or kV adjustment per patient size (includes targeted exams where dose is matched to clinical indication); or iterative reconstruction. COMPARISON: US SOFT TISSUE HEAD AND NECK 08/09/2024 4:27 PM FINDINGS: Brain: No acute intra- or extra axial fluid collections are identified. The basal cisterns are patent. No mass effect or midline shift is seen. The moore-white matter differentiation is normal. Periventricular hypoattenuation are nonspecific but likely the sequela of chronic small vessel ischemic disease. There is a calcified lesion along the inner table of the left frontal bone measuring approximately 1.4 cm, which could represent dural calcification or calcified, burnt out meningioma, (series 5, image 217). Suggestion of hyperostosis frontalis interna. Effacement of the sulci is likely a normal variant but can be seen in the setting of brain edema, in the appropriate clinical setting. Clinical correlation is recommended. Cerebral ventricles: The ventricles are nondilated. Paranasal sinuses: There is peripherally calcified tiny lesion in the left sphenoid sinus, likely a small osteoma. Mastoid air cells: The mastoid air cells appear grossly clear. Orbital cavities: The patient is status post cataract extraction. Bones: No acute calvarial fracture is identified. Please refer to the concurrent CT of the facial bones for additional details. Soft tissues: Small soft tissue swelling is noted along the left frontal scalp. Vasculature: There are atherosclerotic calcifications of the carotid siphons. IMPRESSION: No evidence of acute intracranial hemorrhage, mass effect, or midline shift.
--- NOTE | 2025-02-18 01:38 | XR_ITS ---
PROCEDURE INFORMATION: Exam: XR Right Humerus Exam date and time: 02/18/2025 1:55 AM Age: 74 years old Clinical indication: Pain; Upper arm; Right; Additional info: Fall, pain TECHNIQUE: Imaging protocol: Radiologic exam of the right humerus. Views: 2 or more views. COMPARISON: CR XR SHOULDER RT MIN 2V 08/02/2024 10:20 AM FINDINGS: Bones/joints: Fracture through the anatomic neck of the humerus with 1.1 cm of displacement. Avulsion of the greater tuberosity of the humerus with 0.3 cm of displacement. No other fracture. The joints are well aligned. Soft tissues: Normal. IMPRESSION: 1. Fracture through the anatomic neck of the humerus with 1.1 cm of displacement. 2. Avulsion of the greater tuberosity of the humerus with 0.3 cm of displacement. 3. No other fracture. The joints are well aligned.
--- NOTE | 2025-02-18 01:38 | XR_ITS ---
PROCEDURE INFORMATION: Exam: XR Right Shoulder Exam date and time: 02/18/2025 1:55 AM Age: 74 years old Clinical indication: Pain; Shoulder; Right; Additional info: Fall, pain TECHNIQUE: Imaging protocol: Radiologic exam of the right shoulder. Views: 2 or more views. COMPARISON: CR XR SHOULDER RT MIN 2V 08/02/2024 10:20 AM FINDINGS: Bones/joints: Fracture through the anatomic neck of the humerus with 1.1 cm of displacement. Avulsion of the greater tuberosity of the humerus with 0.8 cm of displacement. No other fracture. The joints are well aligned. Soft tissues: Normal. IMPRESSION: 1. Fracture through the anatomic neck of the humerus with 1.1 cm of displacement. 2. Avulsion of the greater tuberosity of the humerus with 0.8 cm of displacement. 3. No other fracture. The joints are well aligned.
--- NOTE | 2025-02-18 01:48 | HMH.EDGENADL ---
Discharge Plan Disposition Patient Disposition: Xfer Short-Term Hosp Condition: Good Prescriptions Prescriptions: No Action estradiol 0.05 mg/24 hr patch semiweekly 1 patch transdermal .biweekly levothyroxine [Synthroid] 75 mcg tablet 75 mcg PO DAILY 90 Days Qty: 90 3RF omeprazole 20 mg capsule,delayed release(DR/EC) See Rx Instructions .ROUTE .COMPLEX Qty: 90 3RF Dose Instruction: TAKE 1 CAPSULE DAILY Rx Instructions: TAKE 1 CAPSULE DAILY sertraline 50 mg tablet 75 mg PO DAILY 90 Days Qty: 135 3RF simvastatin 40 mg tablet See Rx Instructions .ROUTE .COMPLEX Qty: 90 3RF Dose Instruction: TAKE 1 TABLET DAILY FOR CHOLESTEROL Rx Instructions: TAKE 1 TABLET DAILY FOR CHOLESTEROL propranolol 80 mg capsule,extended release 24 hr See Rx Instructions .ROUTE .COMPLEX Qty: 90 3RF Dose Instruction: TAKE 1 CAPSULE DAILY Rx Instructions: TAKE 1 CAPSULE DAILY aspirin [Adult Aspirin Regimen] 81 mg tablet,delayed release (DR/EC) 81 mg PO DAILY Qty: 30 2RF progesterone micronized 200 MG capsule 200 mg PO DAILY Referrals Follow up/Referrals: Jamilah Vanegas APRN [Primary Care Provider, Medical] - See instructions Clinical Impressions Clinical Impression: Displaced fracture of surgical neck of right humerus, Closed fracture nasal bone, Fall, Face lacerations Print Language Print Language: Icelandic Discharge ED Provider: Alea Ball General Adult HPI General Chief complaint: Fall Stated complaint: fall, arm, head injury Time Seen by Provider: 02/18/25 01:31 History of Present Illness HPI narrative: 74-year-old female with history of CAD, hypertension, hyperlipidemia, hypothyroid, osteopenia presents to the ER with concerns of injury after fall. Patient reports she was attempting to get out of bed when she had a mechanical fall. She struck the face on an armoire, landed on the right arm, and struck the left elbow on the way down. She denies any loss of consciousness and takes no blood thinners. She denies neck or back pain. Patient states her left elbow is a little sore but she is mostly concerned about her right arm and shoulder stating she thinks it is broken and indicating to her humerus. She has swelling over the left eye with a small cut on the left eyebrow and small cut over the bridge of the nose. No bleeding from the nose. No numbness, tingling, or weakness. She denies any dizziness or chest pain preceding the fall. No recent illness. No other complaints or concerns. Patient reports last tetanus was not within the last 5 years. Related Data Home Medications ?Medication ?Instructions ?Recorded ?Confirmed progesterone micronized 200 mg 200 mg PO DAILY HORMOBES 07/17/18 11/09/24 capsule estradiol 0.05 mg/24 hr semiweekly 1 patch transdermal .biweekly 06/09/23 11/09/24 transdermal patch Previous Rx's ?Medication ?Instructions ?Recorded levothyroxine 75 mcg tablet 75 mcg PO DAILY THYROID 90 days 08/02/24 (Synthroid) #90 tabs omeprazole 20 mg capsule,delayed See Rx Instructions .Route 08/02/24 release .COMPLEX #90 caps propranolol 80 mg capsule,24 See Rx Instructions .Route 08/02/24 hr,extended release .COMPLEX #90 caps sertraline 50 mg tablet 75 mg (1.5 x 50 mg) PO DAILY 90 08/02/24 days #135 tabs simvastatin 40 mg tablet See Rx Instructions .Route 08/02/24 .COMPLEX #90 tabs aspirin 81 mg tablet,delayed 81 mg PO DAILY #30 tabs 10/19/24 release (Adult Aspirin Regimen) Allergies Allergy/AdvReac Type Severity Reaction Status Date / Time erythromycin base Allergy Nausea Verified 11/09/24 09:31 Penicillins Allergy Hives Verified 11/09/24 09:31 [facility] Disclaimer: The information contained in this section may have been updated after the patient was seen, as this information can be updated by other users. Medical History Hypothyroid LOM (left otitis media) Anxiety Chronic GERD Tachycardia COVID-19 Surgical History H/O colonoscopy Family History Mother Heart attack Father Leukemia Social History Smoking Status: Never smoker alcohol intake: never substance use type: denies use current occupational status: retired Travel in the last 8 weeks?: None caffeine: Yes Other Medical History Have you received the Flu Vaccine for this season: No Have you received the Pneumonia Vaccine: Yes ROS Obtained: Yes Systems reviewed as appropriate & no additional complaints except as documented Per HPI Physical Exam General General appearance: alert and in no apparent distress Head Head exam: normocephalic and other (Swelling with small laceration over the lateral edge of left eyebrow. Laceration is approximately 1.5 cm in length overlying the lateral edge of the orbit just inferior to the lateral end of the left eyebrow. Hemostatic. Not gaping.) Eye Eye exam: Present PERRL, EOMI and other (No hyphema, no evidence of injury to the eye); Absent conjunctival injection ENT ENT exam: Present mucous membranes moist and other (Less than 1 cm vertically oriented laceration over the bridge of the nose, no septal hematoma, no crepitus) Neck Neck exam: Present normal inspection and full ROM; Absent tenderness Chest Chest inspection: Present symmetric chest wall rise Respiratory Respiratory exam: Present normal lung sounds bilaterally; Absent respiratory distress, wheezes or stridor Cardiovascular Cardiovascular exam: Present regular rate and normal rhythm Abdominal Exam Abdominal exam: Present soft; Absent distention or tenderness Extremities Exam Extremities exam: Present tenderness (Throughout the right humerus and right shoulder with no obvious deformity or crepitus), normal capillary refill, joint swelling (Focal swelling over the olecranon of the left elbow with slight tenderness but no deformity or crepitus, full range of motion) and other (Neurovascularly intact in all distal extremities and distal to all injuries); Absent full ROM (Limited range of motion of the right upper extremity secondary to pain in the shoulder and humerus ROM elsewhere full) Back Exam Back exam: Present full ROM; Absent tenderness Neurological Exam Neurological exam: Present alert and oriented X3; Absent motor sensory deficit Psychiatric Psychiatric exam: Present normal affect and normal mood Skin Skin exam: Present warm and dry Medical Decision Making Medical Records Medical records reviewed: Yes I reviewed the patient's medical records. Screening: Per USPSTF and CDC recommendations, given the prevalence of disease in our region, it is our hospital?s policy to screen for HIV and viral Hepatitis for all patients aged 18 and over and those with ongoing risk factors. Demetris Inquiry Pt receiving controlled substance: No Vital Signs: 02/18/25 01:35 02/18/25 01:37 02/18/25 02:30 Temperature 97.8 F Temperature Source Oral Pulse Rate 67 66 Pulse Rate [Radial] 70 Respiratory Rate 18 Blood Pressure 185/91 H 163/78 H Blood Pressure [Right Arm] 185/91 H Blood Pressure Mean 116 Blood Pressure Mean [Right Arm] 122 Blood Pressure Position [Right Arm] Sitting 02 Sat by Pulse Oximetry 100 96 96 Oxygen Delivery Method Room Air 02/18/25 03:00 Temperature Temperature Source Pulse Rate 63 Pulse Rate [Radial] Respiratory Rate Blood Pressure 161/79 H Blood Pressure [Right Arm] Blood Pressure Mean 126 Blood Pressure Mean [Right Arm] Blood Pressure Position [Right Arm] 02 Sat by Pulse Oximetry 97 Oxygen Delivery Method Orders (Tests/Meds): ED MEDICATIONS Generic Name Dose Route Start Last Admin Trade Name Freq PRN Reason Stop Dose Admin Fentanyl Citrate 50 mcg 02/18/25 01:40 02/18/25 01:49 Fentanyl 250mcg/5ml Vial IV 03/20/25 01:39 50 mcg ONCE PRN Administration Moderate to Severe Pain (4-10) Discontinued Medications Generic Name Dose Route Start Last Admin Trade Name Freq PRN Reason Stop Dose Admin Hydromorphone HCl 0.25 mg 02/18/25 02:34 02/18/25 02:42 Hydromorphone 2mg/Ml Syringe IV 02/18/25 02:35 0.25 mg ONCE ONE Administration Ondansetron HCl 4 mg 02/18/25 02:34 02/18/25 02:46 Ondansetron 4mg/2ml Vial IV 02/18/25 02:35 4 mg ONCE ONE Administration Tetanus/Reduced Diphtheria/Acell Pertussis 0.5 ml 02/18/25 01:51 02/18/25 01:58 Tet/Diphth/Pert-Adult 0.5ml Syringe IM 02/18/25 01:52 0.5 ml .ONCE ONE Administration ORDERS Category Date Time Status CT cervical spine wo con Stat Cat Scan 02/18/25 01:[address] facial bones wo con Stat Cat Scan 02/18/25 01:[address] head/brain wo con Stat Cat Scan 02/18/25 01:[address] shoulder RT wo con Stat Cat Scan 02/18/25 02:11 Completed Elbow XR left 2 views [XR elbow LT 2V] Stat Exams 02/18/25 01:38 Completed Humerus XR right [XR humerus RT] Stat Exams 02/18/25 01:38 Completed Shoulder XR right miminum 2 views [XR shoulder RT min Exams 02/18/25 01:38 Completed 2V] Stat Medical Decision Narrative: In summary, this 74-year-old female with comorbidities described in the HPI presents to the emergency department today with concerns of injury after fall. On initial evaluation patient is hemodynamically stable, afebrile, GCS 15, no neurologic deficits, patient has small wound over the lateral edge of the left eyebrow, small wound over the bridge of the nose, tenderness in the proximal right upper extremity and small swelling over the left olecranon most consistent with ruptured olecranon bursa. Neurovascularly intact throughout. Differential diagnosis includes but is not limited to fracture, dislocation, intracranial bleed, skull fracture, facial fracture, with the left elbow swelling considered possibility of osseous injury but suspect ruptured olecranon bursa. Based on these concerns, I ordered CT and x-ray imaging. Patient received IV fentanyl pain management prior to imaging. X-rays of the right upper extremity personally interpreted demonstrate humeral neck and head fracture with displacement. See radiology read for final interpretation. X-ray left elbow does not demonstrate obvious osseous injury. See radiology read for final interpretation. CT head, C-spine personally interpreted do not demonstrate obvious acute traumatic injury, see radiology read for final interpretation. CT face does not demonstrate significant displaced fracture, radiology read comments on possible nondisplaced left nasal bone fracture. This would correlate clinically since patient has tenderness over the bridge of the nose with overlying laceration that is like a chunk of skin was removed, it is not a gaping laceration. Radiology read of shoulder CT comments on humeral neck fracture as well as fracture of the tuberosity both with displacement. I discussed this case with Dr. Abraham and we reviewed the images of the patient's shoulders. He is concerned about the complexity and significant displacement of the shoulder and is worried this patient may require reverse shoulder for management which he does not perform. He recommends transfer to higher level of care for orthopedic evaluation. I appreciate his recommendations. Patient received Dilaudid and Zofran for continued pain management and symptomatic control. She remains neurovascularly intact. GCS 15. Wounds were cleaned. Tdap administered. Wounds repaired with skin glue after being cleaned. I reached out to and spoke with transfer center nurse. She is awaiting a callback from trauma surgery before being able to accept this patient. transfer center nurse eventually called back, unfortunately trauma surgery is not available at this time so they had to reach out to the [facility]. The case was reviewed with the [facility] and accepted for ER to ER transfer. Patient was accepted by Dr. Disla. Patient was reassessed immediately prior to transfer. Airway intact, GCS 15. Pain controlled at this time. Sling has been applied for stabilization during transportation. She is appropriate for transfer and was transferred in stable condition by ambulance. Procedures Risk/Benefits of Procedure(s) Were Explained: Yes Laceration Laceration 1: Site: face (Nose) Size (cm): 1 Description: other (Linear but approximately 3 mm wide, appears as though a chunk was taken out of the area over the nasal bridge more like a skin tear than laceration) Depth: simple, single layer Pre-repair: irrigated extensively Skin layer closed with: Dermabond Laceration 2: Site: face Side (If applicable): left (Linear laceration at the lateral edge of the left orbit) Size (cm): 1.5 Description: linear and clean Depth: simple, single layer Pre-repair: irrigated extensively Skin layer closed with: Dermabond Critical Care Critical Care Time Critical Care Time: No
[2025-02-18] MEDS: FENTANYL 250MCG/5ML VIAL 50 MCG IV (01:49)
[2025-02-18] MEDS: TET/DIPHTH/PERT-ADULT 0.5ML SYRINGE 0.5 ML IM (01:58)
--- NOTE | 2025-02-18 02:11 | CT_ITS ---
PROCEDURE INFORMATION: Exam: CT Right Upper Extremity Without Contrast, Shoulder Exam date and time: 02/18/2025 2:18 AM Age: 74 years old Clinical indication: Injury or trauma; Additional info: Fall FX TECHNIQUE: Imaging protocol: Computed tomography of the right upper extremity without contrast. Exam focused on the shoulder. Radiation optimization: All CT scans at this facility use at least one of these dose optimization techniques: automated exposure control; mA and/or kV adjustment per patient size (includes targeted exams where dose is matched to clinical indication); or iterative reconstruction. COMPARISON: CR XR SHOULDER RT MIN 2V 02/18/2025 1:55 AM FINDINGS: Bones/joints: Fracture through the anatomic neck of the humerus. There is 1.3 cm of impaction pain. Avulsion of the greater tuberosity of the humerus with multiple small fragments. There is displacement of up to 0.7 cm. No other fracture. The joints are well aligned. Soft tissues: Normal. IMPRESSION: 1. Fracture through the anatomic neck of the humerus. There is 1.3 cm of impaction pain. 2. Avulsion of the greater tuberosity of the humerus with multiple small fragments. There is displacement of up to 0.7 cm. 3. No other fracture. The joints are well aligned.
[2025-02-18 02:30] VITALS: BP 163/78; PULSE 66; O2SAT 96
[2025-02-18] MEDS: HYDROMORPHONE 2MG/ML SYRINGE 0.25 MG IV (02:42)
[2025-02-18] MEDS: ONDANSETRON 4MG/2ML VIAL 4 MG IV (02:46)
--- NOTE | 2025-02-18 02:56 | PC.NURSE ---
Called [facility] for possible pt xfer
[2025-02-18 03:00] VITALS: BP 161/79; PULSE 63; O2SAT 97
--- NOTE | 2025-02-18 03:01 | PC.NURSE ---
Pt abrasions on face cleansed with soap and water.
--- NOTE | 2025-02-18 04:00 | PC.NURSE ---
report given to JAVY Young at [id number]
[2025-02-18 04:28] VITALS: BP 151/73; PULSE 69; RESP 16; TEMP 36.7; O2SAT 96
== END 2025-02-18 04:30 | disposition short-term general hospital (02) ==
PROVIDERS: Emergency Provider Emergency Medicine; PCP Nurse Practitioner Family
DX: S42.211A Unspecified displaced fracture of surgical neck of right humerus, initial encounter for closed fracture (principal); S02.2XXA Fracture of nasal bones, initial encounter for closed fracture; S01.112A Laceration without foreign body of left eyelid and periocular area, initial encounter
CPT/HCPCS: 70450; 70486; 72125; 73030; 73060; 73070; 73200; 90471; 90715; 96374; 96375; 99285; G0168; J1171; J2405; J3010

== ENCOUNTER 2025-03-16 12:40 | Outpatient (CLI) | payer MEDICARE, OTHER, SELFPAY ==
--- OUTSIDE RECORDS SUMMARY | 2025-02-18 04:42 | XMS_ITS | Encounter Summary ---
Author Organization Healthcare Address [address] [place] [address] Care Team Providers Care Inspector [employer] Name Role Phone Jamilah Vanegas TIBURCIO Primary Care Provider [phone]- [phone] Reason for Referral * Consultation (Routine) - Closed Specialty Diagnoses / Procedures Referred By Sarah velez Referred To Contact Orthopaedic Surgery Diagnoses 3-part fracture of surgical neck of right humerus, initial encounter for closed fracture Janis Rojas PA [address] [address] Phone: tel: fax: Nicho Thomas MD [id number] [place] [address] Phone: tel: fax: Referral ID Status Reason Start Date Expiration Date Visits Re quested Visits Authorized [id number] Closed 02/18/2025 08/20/2026 1 1 Reason for Visit * Reason Comments Fall Encounter Details Date Type Department Care Team (Late st Contact Info) Description 02/18/2025 5:42 AM EDT - 02/18/2025 3:32 PM EDT Emergency [facility] [address] [place] [address] Ranjith Daniels MD [address] [place] [address] Shailesh Parra MD [address] [place] [address] 3-part fracture of surgical neck of right humerus, initial encounter for closed fracture (Primary Dx); Fall, initial encounter; Fx humeral neck, right, closed, initial encounter; Closed nondisplaced fracture of nasal bone, initial encounter Discharge Disposition: Home or Self Care Social History Tobacco Use Types Packs/Day Years Used Date Smoking Tobacco: Never Smokeless Tobacco: Never Tobacco Cessation:Counseling Given: Not Answered Comments Unknown Sex and Gender Information Value Date Recorded Sex Assigned at Not on file Legal Sex Female 8:36 PM EDT Gender Identity Not on file Sexual Orientation Not on file documented as of this encounter Last Filed Vital Signs Vital Sign Reading Time Taken Comments Blood Pressure 150/82 02/18/2025 3:31 PM EDT Pulse 65 02/18/2025 3:31 PM EDT Temperature 36.8 C (98.2 F) 02/18/2025 3:31 PM EDT Respiratory Rate 18 02/18/2025 3:31 PM EDT Oxygen Saturation 95% 02/18/2025 3:31 PM EDT Inhaled Oxygen Concentration - - Weight 54.9 kg (121 lb 0.5 oz) 02/18/2025 5:58 A M EDT Height 157.5 cm (5' 2 ) 02/18/2025 5:58 AM EDT Body Mass Index 22.14 02/18/2025 5:58 AM EDT documented in this encounter Functional Status * Calculated C-SSRS Risk Score (Lifetime/Recent) Answer Date of Assessment Author No Risk Indicated 02/18/2025 6:00 AM EDT Aliza Perkins RN * Question Answer Date of Assessment Author 1. Wish to be (Past 1 Month) No 02/18/2025 6:00 AM EDT Aliza Perkins RN 2. Non-Specific Active Suici shaji Thoughts (Past 1 Month) No 02/18/2025 6:00 AM EDT Maeve Perkins RN 6. Suicidal Behavior (Lifetime) No 6:00 AM EDT Aliza Perkins RN documented as of this encounter Discharge Instructions * Discharge Instructions* Mark Anthony Sebastian MD - 02/18/2025 2:58 PM EDT You were seen today for a fall for which you have a right humeral neck fracture as well as a nondisplaced nasal fracture. Please take the prescribed medications as directed. You may take 400 mg of ibuprofen every 6 hours. You may take 500-650 mg of Tylenol every 6 hours. You may alternate with the Tylenol and Ibuprofen or take them at the same time if it is easier for you. The Robaxin can make you sleepy, please take this every 6 hours as well as needed. You have been given oxycodone for BREAKTHROUGH pain. I recommend you take this medication when yourpain is the worst, preferably at night to help you sleep better. The ortho service will call you to schedule an appointment in the next 1-2 weeks. If you develop any new or worsening symptoms please do not hesitate to return to the emergency department for re-evaluation. Per Face Team: - Laceration repaired by OSH with dermabond - Apply bacitracin to wound BID x 3 days - Petroleum jelly or aquaphor to wound BID x 3 weeks - Sunscreen to wound after 3 weeks for at least 6 months and wear a hat when in direct sunlight - Keep wounds moist and clean: free of crusting, dry blood, and debris - Ok to shower. Let water run across the laceration sites. May fully submerge in water starting in 5 days. Avoid soaking in tubs or pools. - Once skin edges are completely healed, use sunblock or physical protection (e.g., broad-brimmed hat) when out in the sun for 6 months to prevent hyperpigmentation. documented in this encounter Medications at Time of Discharge bacitracin 500 UNIT/GM ointment Please use over facial lacerations 14 g 02/18/2025 cycloSPORINE (Restasis) 0.05 % ophthalmic emulsion 02/06/2025 estradiol (Vivelle-DOT) 0.05 MG/24HR 11/17/2024 methocarbamol (Robaxin) 500 MG tablet Take 1 tablet by mouth 4 times a day as needed for muscle spasms. 40 tablet 02/18/2025 naloxone (Narcan) 4 mg/0.1 mL nasal spray 1. Give 1 spray in nostril for no/slow breathing or cannot wake after opioid use 2. Call 911 3. Repeat in other nostril if symptoms continue Use 1 spray in one nostril for overdose; may repeat in 2 to 3 minutes if needed 1 each 02/18/2025 omeprazole (PriLOSEC) [address] capsule 08/09/2024 progesterone (Prometrium) 200 MG capsule 02/06/2025 propranolol LA (Inderal LA) 80 MG 24 hr capsule 12/22/2024 sertraline (Zoloft) 50 MG tablet 12/30/2024 simvastatin (Zocor) 40 MG tablet 11/10/2024 Synthroid 75 MCG tablet 09/24/2024 oxyCODONE (Roxicodone) 5 MG immediate release tablet Take 1 tablet by mouth every 6 hours as needed (pain) for up to 3 days. 12 tablet 02/18/2025 documented as of this encounter Miscellaneous Notes * Assessment & Plan Note - Chapis Cui PA - 02/18/2025 12:34 PM EDT Associated Problem(s): Fall Fall OOB * Assessment & Plan Note - Chapis Cui PA - 02/18/2025 12:34 PM EDT Associated Problem(s): Fracture of surgical neck of right humerus ORT consulted Non-operative Placed in cuff and collar sling, NWB Will follow up outpatient * Assessment & Plan Note - Chapis Cui PA - 02/18/2025 12:33 PM EDT Associated Problem(s): Nasal bone fracture OMFS consulted No acute surgical intervention Outpatient follow up in 5 days * Assessment & Plan Note - Chapis Cui PA - 02/18/2025 11:32 AM EDT Associated Problem(s): Face lacerations Lacerations lateral to left upper eyelid and nasal bridge Repaired with Dermabond at OSH * Assessment & Plan Note - Chapis Cui PA - 02/18/2025 11:32 AM EDT Associated Problem(s): Hypothyroidism Continue Synthroid * Assessment & Plan Note - Chapis Cui PA - 02/18/2025 11:32 AM EDT Associated Problem(s): GERD (gastroesophageal reflux disease) Continue Omeprazole * Assessment & Plan Note - Chapis Cui PA - 02/18/2025 11:32 AM EDT Associated Problem(s): Anxiety Continue Sertraline * Assessment & Plan Note - Chapis Cui PA - 02/18/2025 11:32 AM EDT Associated Problem(s): Hyperlipemia Continue Simvastatin * H&P - Chapis Cui PA - 02/18/2025 10:56 AM EDT Trauma Alert? No Consult to Trauma Surgery Consult performed by: Chapis Cui PA Consult ordered by: Ranjith Daniels MD Time of Consultation: 08 Time of Trauma Evaluation: 1040 Arrival Date: 02/18/2025 Arrival Time: 0538 Referring Hospital: [facility] () Injury Date: 02/18/2025 Injury Time: 0030 Transport Mode: Mode of Arrival: Ambulance Mechanism of Injury Fall Distance Fall out of bed Farm Related Injury: no Work Related Injury: no History Of Present Illness Vashti Hernandez is a 74 y.o. female with PMHx of GERD, HLD, hypothyroidism, and anxiety, presented 02/18 from OSH for a fall out of bed. Around 12:30 this morning she tried crawling over her in bed to get to the bathroom. She fell off the bed and hit her head on her jewelry armoire next to her bed and then fell onto her right side on the floor. She does not have a history of falls in the past. Denies LOC, -BT. Patient received CT scans of her head, c-spine, face, and right shoulder. Imaging only significant for nondisplaced left nasal bone fracture and right humeral neck fracture for which OMFS and ORT have been consulted. Old Chart Reviewed: yes Total fluids given prior to arrival unknown. Loss of Consciousness: no Past Medical History She has a past medical history of GERD (gastroesophageal reflux disease), Hyperlipidemia, Hypothyroidism, anxiety Surgical History Surgery on left elbow Family History Family History[1] Reviewed and not pertinent Social History She denies smoking, drinking alcohol, or use of illicit drugs. Allergies Erythromycin and Penicillins Medications Omeprazole, simvastatin, synthroid, propranolol, sertraline, baby aspirin, progesterone, estradiol patch Occupational History Occupational history[2] Employer: No address on file. Immunizations not reviewed VACCINE / DOSE Flu Tetanus Pneumovax Shingles Review of Systems Relevant review of systems was obtained as able and is negative unless stated above in HPI. Physical Exam Primary survey: - Airway is patent. - Normal breathing sounds bilaterally - 2+ radial pulses - GCS 15, PERRLA Secondary Survey: - Head: Facial lacerations repaired with dermabond. - Neck: Trachea midline. No evidence of lesions. C-spine not tender - Chest: No visible injuries or deformities. No tenderness or crepitus on palpation, no subcutaneous emphysema. Breathing sounds are equal bilaterally. Heart sounds regular and normal. - Abdomen: No ecchymoses or visible injuries. Soft and nontender to palpation. - Pelvis: No evidence of instability or tenderness on gentle compression.- Extremities - RUE: RUE in sling, pain with palpation over known injury, radial pulse palpable. Sensation and motor intact. - LUE: No deformities, radial pulse palpable. Sensation and motor intact. - LLE: No deformities, DP palpable. Sensation and motor intact. - RLE: No deformities, DP palpable. Sensation and motor intact. - Back and spine: No wounds, deformities, step-off, or tenderness along the cervical, thoracic, lumbar, sacral spine. Rectal exam was deferred. Last Recorded Vitals Blood pressure (!) 165/66, pulse 70, temperature 36.6 ??C (97.9 ??F), temperature source Oral, resp. rate 14, height 1.575 m (5' 2 ), weight 54.9 kg (121 lb 0.5 oz), SpO2 97%. Caroline Caroline Coma Scale Best Eye Response: Spontaneous Best Verbal Response: Oriented Best Motor Response: Follows commands Caroline Coma Scale Score: 15 Intubated No Recent Results Labs in last 18 hours CBC WBC 10.35 (H) Hb 11.3 Plt 201 Hct 33.2 (L) ANC 8.82 (H) INR ??, PTT ??, Anti-Xa ?? BMP Na 136 Cl 101 BUN 14 Glu 128 (H) K 3.7 Co2 23 Cr 0.82 Ca 8.4 (L) iCa ?? Mg ??, Phos ?? Lactate ?? LFT AST 18 AlkPhos 66 T Prot 6.8 ALK 11 Bili 0.3 Alb ?? D.Bili ?? Radiology FAST not performed / unindicated Images personally reviewed and consistent with the following: Plain Films: -Xray R shoulder/humerus/elbow: Comminuted displaced fracture the right humeral surgical neck with anterior medial displacement of the proximal end of the humeral fracture segment. - Xray L shoulder/humerus/elbow: No acute osseous findings of the imaged left upper extremity. Impression: Vashti Hernandez is a 74 y.o. female with PMHx of GERD, HLD, hypothyroidism, and anxiety, presented 02/18 from OSH for a fall out of bed. Around 12:30 this morning she tried crawling over her in bed to get to the bathroom. She fell off the bed and hit her head on her jewelry armoire next to her bed and then fell onto her right side on the floor. She does not have a history offalls in the past. Denies LOC, -BT. Injuries include nondisplaced nasal bone fracture and right humeral neck fracture for which OMFS and ORT have been consulted. She has been HDS, NAD, on RA since arriving in ED. She has pain only in her right shoulder, which is a 4/10 on examination after pain medi cations. Patient is able to ambulate by herself and has help from her at home if needed. Patient and are understanding and agreeable to plan for discharge. Assessment & Plan Fall Present on Admission: Yes Fall OOB Fracture of surgical neck of right humerus Present on Admission: Yes ORT consulted Non-operative Placed in cuff and collar sling, NWB Will follow up outpatient Face lacerations Present on Admission: Yes Lacerations lateral to left upper eyelid and nasal bridge Repaired with Dermabond at OSH Nasal bone fracture Present on Admission: Unknown OMFS consulted No acute surgical intervention Outpatient follow up in 5 days Hypothyroidism Present on Admission: Yes Continue Synthroid GERD (gastroesophageal reflux disease) Present on Admission: Yes Continue Omeprazole Anxiety Present on Admission: Unknown Continue Sertraline Hyperlipemia Present on Admission: Yes Continue Simvastatin Disposition: Discharge to home with oral pain medications DIANE London [1] No family history on file. [2] Cosigned by Krunal Sykes MD at 02/26/2025 2:56 AM EDT Associated attestation - Krunal Sykes MD - 02/26/2025 2:56 AM EDT I attest to being involved in providing substantive time in patient care, totaling more than half of our combined time spent in patient care. I agree with the note as documented and personally directed or performed the medical decision making and documentation, performance of the exam, and obtaining subjective information. * Consults - Janis Rojas PA - 02/18/2025 10:32 AM EDTAssociated Order(s): IP CONSULT TO ORTHOPAEDICS ORTHOPAEDIC TRAUMA SURGERY CONSULT Time Consulted: 899 Time Seen: 934 Chief Complaint: Fall HPI: Vashti Hernandez is a 74 y.o. female with PMH significant for HTN, HLD, hypothyroidism, GERD, who presented to [facility] as transfer from OSH after fall. Patient states that she was getting out of bedto use the restroom last night and fell getting out of bed. She fell onto her right shoulder and did hit her head. She has immediate pain in the right shoulder. She presented to OSH ED where she was found to have multiple facial lacerations and a right proximal humerus fracture. Patient was transferred to [facility] for higher level of care. Past Medical History: Past Medical History[1] Past Surgical History: Surgical History[2] Family History: family history is not on file. Reviewed and found to be non contributory to HPI/CC. Family or Personal History of DVT/PE?: Denies Allergies: Allergies[3] Metal Allergy: No Social History: Tobacco: Denies Alcohol: Denies Illicit substance use: Denies Lives with in [place], [place]. ROS: A 14 point review of systems was conducted and was negative except aforementioned in the HPI, and if present the following systems listed below: Physical Exam: General:NAD Vitals: Visit Vitals BP (!) 150/82 Pulse 65 Temp 36.8 ??C (98.2 ??F) (Oral) Ht 1.575 m (5' 2 ) Wt 54.9 kg (121 lb 0.5 oz) SpO2 95% BMI 22.14 kg/m?? Psych: AOx3, Appropriate mood and affect Eyes: EOMI, PERRLA, Sclera Anicteric HENMT: NCAT, mmm, good dentition GI: Soft, NT, No organomegaly Resp: Good effort, symmetrical chest rise CV: No evidence of lymphedema, Pulses as below. Skin: No palpable masses, No rashes or lesions, except specificaly mentioned below on each extremity Musculoskeletal Exam: Neck: Neck non tender to palpation, no step-off Chest: Clavicles non tender to palpation Pelvis: stable to AP/Lat compression RUE: skin intact, no deformity, soft compartments, no pain with passive stretch, TTP about shoulder ROM: Full/painless/stable at wrist, pain with any shoulder ROM, elbow ROM limited 2/2 pain from shoulder Motor: 5/5 WF, 5/5 WE, 5/5 FF, 5/5 FE, 5/5 Fabd, 5/5 EPL, /5 FPL Sensory: Sensation intact to light touch axillary, radial, median, ulnar nn. Vascular: 2+ radial pulse, cap refill <2 sec LUE: skin intact, no deformity, soft compartments, no pain with passive stretch, non tender to palpation ROM: Full/painless/stable at shoulder, elbow, and wrist Motor: /5 ER/IR, 09/06 Delt, 5 Bic, 5 Tri, 5 WF, 5 WE, 5 FF, 5 FE, 5 Fabd, 09/06 EPL, 09/06 FPL Sensory: Sensation intact to light touch axillary, radial, median, ulnar nn. Vascular: 2+ radial pulse, cap refill <2 sec RLE: skin intact, ecchymosis dorsal aspect of foot without TTP, no deformity, soft compartments, nopain with passive stretch, non tender to palpation ROM: Full/painless/stable at hip, knee, and ankle Motor: 5/5 HAbd, 5/5 HF, 5/5 KE, 5/5 KF, 5/5 TA, 5/5 GSC, 5 EHL, 5 FHL, 5 Ever Sensory: Sensation intact to light touch deep peroneal, superficial peroneal, tibial, sural, saphenous nn. Vascular:2+ dorsalis pedis and posterior tibial pulse, cap refill <2 sec LLE: skin intact, no deformity, soft compartments, no pain with passive stretch, non tender to palpation ROM: Full/painless/stable at hip, knee, and ankle Motor: 5/5 HAbd, 5/5 HF, 5/5 KE, 5/5 KF, 5/5 TA, 5/5 GSC, 5/5 EHL, 5/5 FHL, 5/5 Ever Sensory: Sensation intact to light touch deep peroneal, superficial peroneal, tibial, sural, saphenous nn. Vascular: 2+ dorsalis pedis and posterior tibial pulse, cap refill <2 sec Labs: Labs in last 18 hours CBC WBC 10.35 (H) Hb 11.3 Plt 201 Hct 33.2 (L) ANC 8.82 (H) INR ??, PTT ??, Anti-Xa ?? BMP Na 136 Cl 101 BUN 14 Glu 128 (H) K 3.7 Co2 23 Cr 0.82 Ca 8.4 (L) iCa ?? Mg ??, Phos ?? Lactate ?? LFT AST 18 AlkPhos 66 T Prot 6.8 ALK 11 Bili 0.3 Alb ?? D.Bili ?? Imaging: Xrays of the following, reviewed and requested by me demonstrate the following: Radiology Results (Copy/paste from radiology report, as required): 4 views right shoulder with right proximal humerus fracture Assessment: Vashti Hernandez is a 74 y.o. female with right proximal humerus fracture Plan: -NWB RUE in C+C -Anticipate non-operative management -No overhead motion -Encouraged ROM of elbow, wrist, digits -Pain control per ED -Okay to discharge from an orthopaedic standpoint -Follow up in outpatient upper extremity clinic, ortho to enter referral -Patient will be contacted with follow up appointment date and time Janis Rojas PA-C Department of Orthopaedic Surgery and Sports Medicine Consult Pager: [phone] Service Pager:[phone] [1] Past Medical History: Diagnosis Date GERD (gastroesophageal reflux disease) Hyperlipidemia Hypertension Hypothyroidism [2] History reviewed. No pertinent surgical history. [3] Allergies Allergen Reactions Erythromycin Diarrhea Penicillins Hives Cosigned by Paras Martin MD at 02/21/2025 11:49 AM EDT * Consults - Xavier Escalante DMD - 02/18/2025 9:02 AM EDTAssociated Order(s): Consult to Oral Surgery Images from the original note were not included. Oral & Maxillofacial Surgery Facial Trauma Consult Note 02/18/25 Reason for Consult: Facial fracture Requesting Service: Emergency Department Consult Date and Time: 02/18/2025 0830 Consult to Oral Surgery Consult performed by: Xavier Escalante DMD Consult ordered by: Ranjith Daniels MD Reason for consult: Facial fracture History of Present Illness: Vashti Hernandez is a 74 y.o. female with a PMH of CAD, hypertension,HLD, hypothyroid, osteopenia who presents from OSH with facial laceration and possible lateral nasal bone fracture after patient fell trying to get out of bed around 1230 this morning. Patient landed on her right arm and the leftside of her face. LoC-, BT-, NV-. Pt. Denies dysphagia, dyspnea, hoarseness, dysphonia, or n/v/f/c.CT scan from OSH showed possible nondisplaced or minimally displaced fracture of left nasal bone. Patient also has facial laceration lateral to upper left eyelid and nasal bridge which were repaired with Dermabond from OSH. OMFS was consulted for evaluation of possible left nasal bone fracture. Pt denies diplopia, visions change, face numbness, nasal obstruction, malocclusion, neck pain, hearing loss. History Obtained From: Patient REVIEW OF SYSTEMS: 14 points ROS negative unless otherwise noted in HPI Review of Systems HENT: Positive for facial swelling. Negative for congestion, nosebleeds, rhinorrhea, sinus pressureand sinus pain. PAST MEDICAL HISTORY CAD, hypertension,HLD, hypothyroid, osteopenia, GERD PAST SURGICAL HISTORY No pertinent surgical historu MEDICATIONS Medications Ordered Prior to Encounter[1] ALLERGIES Erythromycin, penicillin FAMILY HISTORY Family History[2] SOCIAL HISTORY Smoking: denies Alcohol: denies Illicit drugs: denies Objective Visit Vitals BP (!) 146/70 Pulse 66 Temp 36.6 ??C (97.9 ??F) (Oral) Ht 1.575 m (5' 2 ) Wt 54.9 kg (121 lb 0.5 oz) SpO2 96% BMI 22.14 kg/m?? PHYSICAL EXAMINATION: GEN: AAOx3, Not intubated HEAD: - Scalp: Intact without lacerations, abrasions, or avulsions. No ecchymosis or edema noted. - Face: 2 cm linear laceration present lateral to left upper eyelid repaired with dermabond, hemostatic No ecchymosis or edema noted. EARS: - Auricle: Intact without lacerations or avulsions. No auricular hematoma AU - EAC: Intact, non-stenotic without laceration AU - TM: Intact w/o perforation. No hemotympanum AU. EYES: - Vision: Grossly intact. No diplopia or other vision changes - Motor: PERRLA, EOMI - Periorbita: No e/o enophthalmos, proptosis, nystagmus, or subconjunctival hemorrhage. NOSE: - External: 2 cm linear vertical laceration on nasal bridge, hemostatic, repaired with dermabond. No steps, crepitus, or obvious external deformity - Septum: Intact without fracture or septal hematoma - Internal: No evidence of current or recent epistaxis. ORAL CAVITY/OROPHARYNX: - Mucosa/palate: Intact without lacerations or avulsions. No mucosal ecchymosis. - Teeth: Fair oral hygiene. No fractured, missing, or loose teeth appreciated. Alveolar ridge intact. - Mandible: Occlusion stable and reproducible. No obvious fractures, mobile segments, step deformities - Maxilla: Occlusion stable and reproducible. No obvious fractures, mobile segments, step deformities - Tongue: Intact without laceration - Palate: Intact without laceration or hematoma NECK: - No lacerations. Trachea midline. NEUROLOGICAL - GCS: 15 - Facial Nerve: grossly intact bilaterally - Trigeminal Nerve: V1, V2, V3 grossly intact bilaterally - Cochlear Nerve: Hearing grossly normal - CN II-IV, , IX-XII: intact grossly - Gross motor: intact MAXILLOFACIAL/ SKULL - Skull Base: Intact, no steps or crepitus. No Nichols's sign. - Frontal/Supraorbital Rims: Intact, no steps or crepitus. - Nasoorbitalethmoid Complex: Intact, no telecanthus. - Zygoma/Infraorbital Rims: Intact, no steps or crepitus. Laboratory: CBC WBC 10.35 (H) Hb 11.3 Plt 201 Hct 33.2 (L) ANC 8.82 (H) INR ??, PTT ??, Anti-Xa ?? BMP Na 136 Cl 101 BUN 14 Glu 128 (H) K 3.7 Co2 23 Cr 0.82 Ca 8.4 (L) iCa ?? Mg ??, Phos ?? Lactate ?? Imaging: CT Face: There could be a nondisplaced or minimally displaced fracture of left nasal bone. Subtle irregularity of nasal tip. Radiographic Interpretation: I have reviewed the imaging above and agree with the radiologist interpretation. Assessment/Plan Vashti Hernandez is a 74 y.o. female with a PMH of CAD, hypertension,HLD, hypothyroid, osteopenia who presents from OSH with facial laceration and possible lateral nasal bone fracture after patient fell trying to get out of bed around 1230 this morning. On examination and review of relevant imaging the patient was found to have repaired facial laceration of left lateral upper eyelid and nasal bridge and possible left nasal bone fracture. #Possible L nasal bone fracture - Patient presenting with CT face with possible L nasal bone fractures mentioned as above - No immediate surgical intervention by OMFS indicated at this time. - Pain management, abx per ED/ primary team #Left lateral upper eyelid and nasal bridge Laceration: - Laceration repaired by OSH with dermabond - Apply bacitracin to wound BID x 3 days - Petroleum jelly or aquaphor to wound BID x 3 weeks - Sunscreen to wound after 3 weeks for at least 6 months and wear a hat when in direct sunlight - Keep wounds moist and clean: free of crusting, dry blood, and debris - Ok to shower. Let water run across the laceration sites. May fully submerge in water starting in 5 days. Avoid soaking in tubs or pools. - Once skin edges are completely healed, use sunblock or physical protection (e.g., broad-brimmed hat) when out in the sun for 6 months to prevent hyperpigmentation. Follow-Up: Patient Preferred Contact #: [phone] (secondary contact: [phone] ) Will arrange F/U with OMFS ([facility] [employer]) in 5 days for re-evaluation [facility] Department of Oral & Maxillofacial Surgery [address] [place] [address] Fifth Floor, Room [address] [place] [address] Dispo: Continue Current Level of Care Xavier Escalante DMD [1] No current facility-administered medications on file prior to encounter. No current outpatient medications on file prior to encounter. [2] No family history on file. Cosigned by Arnoldo Kumari DDS at 02/18/2025 3:56 PM EDT Associated attestation - Arnoldo Kumari DDS - 02/18/2025 3:56 PM EDT I reviewed the findings with Dr. Lee- a very unusual presentation recommended a Fine needle aspirant and referr to Dr. Haque * ED Provider Notes - Mark Anthony Sebastian MD - 02/18/2025 5:38 AM EDT - HPI Chief Complaint Patient presents with Fall HPI 74-year-old female with a history of HTN, HLD, hypothyroidism, elevated HR on propranolol presents to the emergency department after a fall. The patient is the historian. The patient was transferred from [facility]. The patient states that she was getting out of bed around 12:30 in the morning when she fell over has been and hit her left side of the face and a jewelry arm while and landed on her right shoulder. The patient was transferred here due to a nondisplaced nasal bone fracture as well as a right humeral neck fracture with impaction. The patient has a few facial lacerations over the left eyebrow and knows that were Dermabonded prior to arrival. The patient states that she takes a baby aspirin. The patient received CTs of her head, C-spine, face, right shoulder. CT head was negative. The patient did not lose consciousness. The patient is mostly having pain over the right shoulder. She otherwise does not have any other concerns at this time. Patient History Past Medical History[1] Surgical History[2] Family History[3] Social History[4] Allergies: Allergies[5] Physical Exam ED Triage Vitals [02/18/25 0558] Temp Heart Rate Resp BP 36.6 ??C (97.9 ??F) 68 17 (!) 172/76 SpO2 Temp Source Heart Rate Source Patient Position 98 % Oral Monitor -- BP Location FiO2 (%) -- -- Physical Exam Vitals reviewed. HENT: Head: Normocephalic. Comments: Dermabonded abrasion of the left eyebrow and nasal bone Nose: Nose normal. Comments: No significant ecchymosis or swelling Mouth/Throat: Mouth: Mucous membranes are moist. Eyes: Extraocular Movements: Extraocular movements intact. Pupils: Pupils are equal, round, and reactive to light. Cardiovascular: Rate and Rhythm: Normal rate. Pulses: Normal pulses. Pulmonary: Effort: Pulmonary effort is normal. Breath sounds: Normal breath sounds. Abdominal: Palpations: Abdomen is soft. Tenderness: There is no abdominal tenderness. Musculoskeletal: General: Tenderness and signs of injury present. Cervical back: Normal range of motion. Right lower leg: No edema. Left lower leg: No edema. Comments: RUE in sling with tenderness to palpation of the R shoulder. Full range of motion of the LUE, B/L LE except the R shoulder. Skin: General: Skin is warm. Capillary Refill: Capillary refill takes less than 2 seconds. Neurological: General: No focal deficit present. Mental Status: She is alert and oriented to person, place, and time. Sensory: No sensory deficit. Motor: No weakness. EASI ?? Total Score: 0 [place] Coma Scale Score: 15 Mini Nutritional Screening Score : 13 TRST Assessment Total: 1 ED Course & MDM - Assessment: 74 y.o. female presents to ED with complaint of fall. It should be noted that the chronic conditions includes HTN, HLD, hypothyroidism, elevated HR on propranolol, which currently is not at goal therapy. This complicates the clinical picture because it Comorbidities: may be exacerbating symptoms. Given the patient's history and physical, the differential diagnoses include but are not limited to facial lacerations, nasal fracture, fracture of the humeral neck, elbow dislocation, concussion amongothers. The patient was sent from OSH with all the CT imaging she needed. Xrays of the RUE were ordered again. Face and Ortho were consulted for the nondisplaced nasal fracture and the R humeral neck fracture respectively. OMS recommended sinus precautions and follow up in clinic. Ortho placed the patient in a cuff/sling and will follow up 1-2 weeks, with non-op management. Patient was agreeable with discharge and given multimodal pain control, all questions were answered prior to discharge. In order to fully explore the differential diagnosis the following treatments and tests were ordered: ED Course as of 02/18/25 1605 FriFeb 18, 2025 0827 Consulted Face ([facility]) to evaluate patient and provide reccs for nondisplaced nasal bone fracture [KG] 0830 After an interactive discussion with ENT, they have agreed to see the patient at bedside [KG] 0857 Consult to Ortho for R humeral neck frx [KG] 0859 Ortho took a message, in the OR at this time [KG] 1007 XR Shoulder Right 2+ Views Comminuted displaced fracture the right humeral surgical neck with anterior medial displacement of the proximal end of the humeral fracture segment [KG] 1031 Consult to Trauma [KG] 1050 After an interactive discussion, trauma has agreed to see the patient at bedside [KG] ED Course User Index [KG] Mark Anthony Sebastian MD Clinical Impressions as of 02/18/25 1605 Fall, initial encounter Fx humeral neck, right, closed, initial encounter Closed nondisplaced fracture of nasal bone, initial encounter Social Determinates of Health Risks (including Economic Stability, Education and level of understanding, Healthcare access and quality and concerning social factors): Lives far away Ultimately, this patient was discharged. (Discharge) The primary encounter diagnosis was 3-part fracture of surgical neck of right humerus, initial encounter for closed fracture. Diagnoses of Fall, initial encounter, Fx humeral neck, right,closed, initial encounter, and Closed nondisplaced fracture of nasal bone, initial encounter were also pertinent to this visit. . Patient was counseled on the diagnoses. Discharge medications if any are listed below. Listed medications are thought be either curative for listed diagnoses or will help control ongoing symptoms. Patient is requested to follow up with Orthopedics in order to obtain routine follow-up and specialty care. Instructions on follow up as well as precautions to return to the ER provided verbally by the EM provider, as well as written in patients discharge education packet. ED Prescriptions None - [1] Past Medical History: Diagnosis Date GERD (gastroesophageal reflux disease) Hyperlipidemia Hypertension Hypothyroidism [2] History reviewed. No pertinent surgical history. [3] No family history on file. [4] Tobacco Use Smoking status: Never Smokeless tobacco: Never [5] Allergies Allergen Reactions Erythromycin Diarrhea Penicillins Hives Mark Anthony Sebastian MD Resident 02/18/[id number] Cosigned by Ranjith Daniels MD at 02/25/2025 12:44 PM EDT Associated attestation - Ranjith Daniels MD - 02/25/2025 12:44 PM EDT I saw and evaluated the patient with the resident/fellow. I discussed the case with the resident/fellow and agree with the findings and plan as documented. * ED Triage Notes - Aliza Perkins - 02/18/2025 5:38 AM EDT Pt was getting out of bed and fell. Hs no hx of falls. -BT. -LOC. Arrived [facility] 15. Small laceration above left eye and bridge of nose. Most of pain is due to right humeral fx. documented in this encounter Plan of Treatment Scheduled Referrals Name Type Priority Associated Diagnoses Order Schedule Ambulatory referral to Orthopaedics Upper Extremity Outpatient Referral Routine 3-part fracture of surgical neck of right humerus, initial encounter for closed fracture 1 Occurrences starting 02/18/2025 until 08/22/2026 documented as of this encounter Procedures Procedure Name Priority Date/Time Associated Diagnosis Comments XR FOREARM LEFT 2 VIEWS STAT 02/18/2025 10:28 AM EDT XR ELBOW LEFT 3+ VIEWS STAT 10:28 AM EDT XR HUMERUS LEFT 2+ VIEWS STAT 02/18/2025 10:28 AM EDT XR ELBOW RIGHT 3+ VIEWS STAT 02/18/2025 8:58 AM EDT XR HUMERUS RIGHT 2+ VIEWS STAT 02/18/2025 8:58 AM EDT XR SHOULDER RIGHT 2+ VIEWS STAT 02/18/2025 8:56 AM EDT CBC WITH AUTO DIFFERENTIAL STAT 02/18/2025 8:30 AM EDT TYPE AND SCREEN STAT 02/18/2025 8:30 AM EDT COMPREHENSIVE METABOLIC PANEL, PLASMA STAT 02/18/2025 8:30 AM EDT documented in this encounter Results * XR Humerus Left 2+ Views (02/18/2025 10:28 AM EDT) Anatomical Region Laterality Modality Upper Extremities, Humerus Left Digit al Radiography Impressions 02/18/2025 11:09 AM EDT No acute osseous findings of the imaged left upper extremity. CRITICAL RESULT: No. COMMUNICATION: Per this written report. By electronically signing this report, I, the attending physician, attest that I have personally reviewed the images/data for the above examination(s) and agree with the final edited report. Drafted by Lucero Simons MD on 02/18/2025 10:32 AM Final report signed by Dorene Nagel MD on 02/18/2025 11:09 AM Narrative 02/18/2025 11:09 AM EDT CLINICAL INDICATION: fall TECHNIQUE: XR ELBOW LEFT 3+ VIEWS, XR FOREARM LEFT 2 VIEWS, XR HUMERUS LEFT 2+ VIEWS COMPARISON: Same day outside CTs. FINDINGS: Diffuse osteopenia Left humerus: No acute fracture or dislocation. Left elbow: No acute fracture or dislocation. No joint effusion. Left forearm: No acute fracture or dislocation. Angiocatheter is seen in the antecubital space. Procedure Note Dorene Nagel MD - 02/18/2025 CLINICAL INDICATION: fall TECHNIQUE: XR ELBOW LEFT 3+ VIEWS, XR FOREARM LEFT 2 VIEWS, XR HUMERUS LEFT 2+VIEWS COMPARISON: Same day outside CTs. FINDINGS: Diffuse osteopenia Left humerus: No acute fracture or dislocation. Left elbow: No acute fracture or dislocation. No joint effusion. Left forearm: No acute fracture or dislocation. Angiocatheter is seen inthe antecubital space. IMPRESSION: No acute osseous findings of the imaged left upper extremity. CRITICAL RESULT: No. COMMUNICATION: Per this written report. By electronically signing this report, I, the attending physician, attestthat I have personally reviewed the images/data for the aboveexamination(s) and agree with the final edited report. Drafted by Lucero Simons MD on 02/18/2025 10:32 AM Final report signed by Dorene Nagel MD on 02/18/2025 11:09 AM us Janis CONTRERAS IMG XR PROCEDURES Final Resul t * XR Forearm Left 2 Views (02/18/2025 10:28 AM EDT) Anatomical Region Laterality Modality Upper Extremities, Forearm Left Digit al Radiography Impressions 02/18/2025 11:09 AM EDT No acute osseous findings of the imaged left upper extremity. CRITICAL RESULT: No. COMMUNICATION: Per this written report. By electronically signing this report, I, the attending physician, attest that I have personally reviewed the images/data for the above examination(s) and agree with the final edited report. Drafted by Lucero Simons MD on 02/18/2025 10:32 AM Final report signed by Dorene Nagel MD on 02/18/2025 11:09 AM Narrative 02/18/2025 11:09 AM EDT CLINICAL INDICATION: fall TECHNIQUE: XR ELBOW LEFT 3+ VIEWS, XR FOREARM LEFT 2 VIEWS, XR HUMERUS LEFT 2+ VIEWS COMPARISON: Same day outside CTs. FINDINGS: Diffuse osteopenia Left humerus: No acute fracture or dislocation. Left elbow: No acute fracture or dislocation. No joint effusion. Left forearm: No acute fracture or dislocation. Angiocatheter is seen in the antecubital space. Procedure Note Dorene Nagel MD - 02/18/2025 CLINICAL INDICATION: fall TECHNIQUE: XR ELBOW LEFT 3+ VIEWS, XR FOREARM LEFT 2 VIEWS, XR HUMERUS LEFT 2+VIEWS COMPARISON: Same day outside CTs. FINDINGS: Diffuse osteopenia Left humerus: No acute fracture or dislocation. Left elbow: No acute fracture or dislocation. No joint effusion. Left forearm: No acute fracture or dislocation. Angiocatheter is seen inthe antecubital space. IMPRESSION: No acute osseous findings of the imaged left upper extremity. CRITICAL RESULT: No. COMMUNICATION: Per this written report. By electronically signing this report, I, the attending physician, attestthat I have personally reviewed the images/data for the aboveexamination(s) and agree with the final edited report. Drafted by Lucero Simons MD on 02/18/2025 10:32 AM Final report signed by Dorene Nagel MD on 02/18/2025 11:09 AM Janis CONTRERAS IMG XR PROCEDURES Final Resul t * XR Elbow Left 3+ Views (02/18/2025 10:28 AM EDT) Anatomical Region Laterality Modality Upper Extremities, Elbow Left Digital Radiography Impressions 02/18/2025 11:09 AM EDT No acute osseous findings of the imaged left upper extremity. CRITICAL RESULT: No. COMMUNICATION: Per this written report. By electronically signing this report, I, the attending physician, attest that I have personally reviewed the images/data for the above examination(s) and agree with the final edited report. Drafted by Lucero Simons MD on 02/18/2025 10:32 AM Final report signed by Dorene Nagel MD on 02/18/2025 11:09 AM Narrative 02/18/2025 11:09 AM EDT CLINICAL INDICATION: fall TECHNIQUE: XR ELBOW LEFT 3+ VIEWS, XR FOREARM LEFT 2 VIEWS, XR HUMERUS LEFT 2+ VIEWS COMPARISON: Same day outside CTs. FINDINGS: Diffuse osteopenia Left humerus: No acute fracture or dislocation. Left elbow: No acute fracture or dislocation. No joint effusion. Left forearm: No acute fracture or dislocation. Angiocatheter is seen in the antecubital space. Procedure Note Dorene Nagel MD - 02/18/2025 CLINICAL INDICATION: fall TECHNIQUE: XR ELBOW LEFT 3+ VIEWS, XR FOREARM LEFT 2 VIEWS, XR HUMERUS LEFT 2+VIEWS COMPARISON: Same day outside CTs. FINDINGS: Diffuse osteopenia Left humerus: No acute fracture or dislocation. Left elbow: No acute fracture or dislocation. No joint effusion. Left forearm: No acute fracture or dislocation. Angiocatheter is seen inthe antecubital space. IMPRESSION: No acute osseous findings of the imaged left upper extremity. CRITICAL RESULT: No. COMMUNICATION: Per this written report. By electronically signing this report, I, the attending physician, attestthat I have personally reviewed the images/data for the aboveexamination(s) and agree with the final edited report. Drafted by Lucero Simons MD on 02/18/2025 10:32 AM Final report signed by Dorene Nagel MD on 02/18/2025 11:09 AM Janis CONTRERAS IMG XR PROCEDURES Final Resul t * XR Elbow Right 3+ View (02/18/2025 8:58 AM EDT) Anatomical Region Laterality Modality Upper Extremities, Elbow Right Digital Radiography Impressions 02/18/2025 10:00 AM EDT Comminuted displaced fracture the right humeral surgical neck with anterior medial displacement of the proximal end of the humeral fracture segment CRITICAL RESULT: No. COMMUNICATION: Per this written report. By electronically signing this report, I, the attending physician, attest that I have personally reviewed the images/data for the above examination(s) and agree with the final edited report. Drafted by Lucero Simons MD on 02/18/2025 9:24 AM Final report signed by Dorene Nagel MD on 02/18/2025 10:00 AM Narrative 02/18/2025 10:00 AM EDT CLINICAL INDICATION: fall onto r shoulder TECHNIQUE: XR HUMERUS RIGHT 2+ VIEWS, XR SHOULDER RIGHT 2+ VIEWS, XR ELBOW RIGHT 3+ VIEWS COMPARISON: Same day outside CTs. FINDINGS: Right shoulder and humerus: Comminuted and displaced fracture of the surgical neck extending into the bicipital groove and anatomical neck of the right humerus. Glenohumeral and acromioclavicular joints are well articulated. Right elbow: No acute fracture or dislocation. Procedure Note Dorene Nagel MD - 02/18/2025 CLINICAL INDICATION: fall onto r shoulder TECHNIQUE: XR HUMERUS RIGHT 2+ VIEWS, XR SHOULDER RIGHT 2+ VIEWS, XR ELBOW RIGHT 3+VIEWS COMPARISON: Same day outside CTs. FINDINGS: Right shoulder and humerus: Comminuted and displaced fracture of thesurgical neck extending into the bicipital groove and anatomical neck ofthe right humerus. Glenohumeral and acromioclavicular joints are wellarticulated. Right elbow: No acute fracture or dislocation. IMPRESSION: Comminuted displaced fracture the right humeral surgical neck withanterior medial displacement of the proximal end of the humeral fracturesegment CRITICAL RESULT: No. COMMUNICATION: Per this written report. By electronically signing this report, I, the attending physician, attestthat I have personally reviewed the images/data for the aboveexamination(s) and agree with the final edited report. Drafted by Lucero Simons MD on 02/18/2025 9:24 AM Final report signed by Dorene Nagel MD on 02/18/2025 10:00 AM Ranjith Daniels MD IMG XR PROCEDURES Final Result * XR Humerus Right 2+ Views (02/18/2025 8:58 AM EDT) Anatomical Region Laterality Modality Upper Extremities, Humerus Right Digit al Radiography Impressions 02/18/2025 10:00 AM EDT Comminuted displaced fracture the right humeral surgical neck with anterior medial displacement of the proximal end of the humeral fracture segment CRITICAL RESULT: No. COMMUNICATION: Per this written report. By electronically signing this report, I, the attending physician, attest that I have personally reviewed the images/data for the above examination(s) and agree with the final edited report. Drafted by Lucero Simons MD on 02/18/2025 9:24 AM Final report signed by Dorene Nagel MD on 02/18/2025 10:00 AM Narrative 02/18/2025 10:00 AM EDT CLINICAL INDICATION: fall onto r shoulder TECHNIQUE: XR HUMERUS RIGHT 2+ VIEWS, XR SHOULDER RIGHT 2+ VIEWS, XR ELBOW RIGHT 3+ VIEWS COMPARISON: Same day outside CTs. FINDINGS: Right shoulder and humerus: Comminuted and displaced fracture of the surgical neck extending into the bicipital groove and anatomical neck of the right humerus. Glenohumeral and acromioclavicular joints are well articulated. Right elbow: No acute fracture or dislocation. Procedure Note Dorene Nagel MD - 02/18/2025 CLINICAL INDICATION: fall onto r shoulder TECHNIQUE: XR HUMERUS RIGHT 2+ VIEWS, XR SHOULDER RIGHT 2+ VIEWS, XR ELBOW RIGHT 3+VIEWS COMPARISON: Same day outside CTs. FINDINGS: Right shoulder and humerus: Comminuted and displaced fracture of thesurgical neck extending into the bicipital groove and anatomical neck ofthe right humerus. Glenohumeral and acromioclavicular joints are wellarticulated. Right elbow: No acute fracture or dislocation. IMPRESSION: Comminuted displaced fracture the right humeral surgical neck withanterior medial displacement of the proximal end of the humeral fracturesegment CRITICAL RESULT: No. COMMUNICATION: Per this written report. By electronically signing this report, I, the attending physician, attestthat I have personally reviewed the images/data for the aboveexamination(s) and agree with the final edited report. Drafted by Lucero Simons MD on 02/18/2025 9:24 AM Final report signed by Dorene Nagel MD on 02/18/2025 10:00 AM Ranjith Daniels MD IMG XR PROCEDURES Final Result * XR Shoulder Right 2+ Views (02/18/2025 8:56 AM EDT) Anatomical Region Laterality Modality Upper Extremities, Shoulder Right Digi dylan Radiography Impressions 02/18/2025 10:00 AM EDT Comminuted displaced fracture the right humeral surgical neck with anterior medial displacement of the proximal end of the humeral fracture segment CRITICAL RESULT: No. COMMUNICATION: Per this written report. By electronically signing this report, I, the attending physician, attest that I have personally reviewed the images/data for the above examination(s) and agree with the final edited report. Drafted by Lucero Simons MD on 02/18/2025 9:24 AM Final report signed by Dorene Nagel MD on 02/18/2025 10:00 AM Narrative 02/18/2025 10:00 AM EDT CLINICAL INDICATION: fall onto r shoulder TECHNIQUE: XR HUMERUS RIGHT 2+ VIEWS, XR SHOULDER RIGHT 2+ VIEWS, XR ELBOW RIGHT 3+ VIEWS COMPARISON: Same day outside CTs. FINDINGS: Right shoulder and humerus: Comminuted and displaced fracture of the surgical neck extending into the bicipital groove and anatomical neck of the right humerus. Glenohumeral and acromioclavicular joints are well articulated. Right elbow: No acute fracture or dislocation. Procedure Note Dorene Nagel MD - 02/18/2025 CLINICAL INDICATION: fall onto r shoulder TECHNIQUE: XR HUMERUS RIGHT 2+ VIEWS, XR SHOULDER RIGHT 2+ VIEWS, XR ELBOW RIGHT 3+VIEWS COMPARISON: Same day outside CTs. FINDINGS: Right shoulder and humerus: Comminuted and displaced fracture of thesurgical neck extending into the bicipital groove and anatomical neck ofthe right humerus. Glenohumeral and acromioclavicular joints are wellarticulated. Right elbow: No acute fracture or dislocation. IMPRESSION: Comminuted displaced fracture the right humeral surgical neck withanterior medial displacement of the proximal end of the humeral fracturesegment CRITICAL RESULT: No. COMMUNICATION: Per this written report. By electronically signing this report, I, the attending physician, attestthat I have personally reviewed the images/data for the aboveexamination(s) and agree with the final edited report. Drafted by Lucero Simons MD on 02/18/2025 9:24 AM Final report signed by Dorene Nagel MD on 02/18/2025 10:00 AM us Ranjith Daniels MD IMG XR PROCEDURES Final Result * Type and screen (02/18/2025 8:30 AM EDT) ABO/Rh O Positive 02/18/2025 8:38 AM EDT BLOOD BANK Antibody Screen Negative 02/18/2025 8:38 AM EDT BLOOD BANK Specimen Expiration 02/21/2025 23:59 02/18/2025 8:38 AM EDT BLOOD BANK Blood Venous blood specimen / Unknown Venipuncture / Unknown 02/18/2025 8:30 AM EDT 02/18/2025 8:38 AM EDT us Ranjith Daniels MD LAB BLOOD BANK TEST ORDERABLES F inal Result BLOOD BANK [address] [place] [address], [place] * (ABNORMAL) CMP (02/18/2025 8:30 AM EDT) Glucose, Plasma 128(H) 74 - 99 mg/dL 02/18/2025 9:[address] [facility] BUN, Plasma 14 8 - 23 mg/dL 02/18/2025 9:[address] [facility] Creatinine, Plasma 0.82 0.60 - 1.10 mg/dL 02/18/2025 9:[address] [facility] BUN/Creatinine Ratio 02/18/2025 9:[address] [facility] Sodium, Plasma 136 136 - 145 mmol/L 02/18/2025 9:[address] [facility] Potassium, Plasma 3.7 3.6 - 4.9 mmol/L 02/18/2025 9:[address] [facility] Chloride, Plasma 101 97 - 107 mmol/L 02/18/2025 9:[address] [facility] CO2, Plasma 23 22 - 29 mmol/L 02/18/2025 9:[address] [facility] Anion Gap 12 6 - 16 mmol/L 02/18/2025 9:[address] [facility] Total Calcium, Plasma 8.4(L) 8.9 - 10.2 mg/dL 02/18/2025 9:[address] [facility] Total Protein 6.8 6.3 - 7.9 g/dL 02/18/2025 9:[address] [facility] Albumin, Plasma 4.1 3.5 - 5.2 g/dL 02/18/2025 9:[address] [facility] AST, Plasma 18 10 - 35 U/L 02/18/2025 9:[address] [facility] ALT, Plasma 11 10 - 35 U/L 02/18/2025 9:[address] [facility] Alkaline Phosphatase, Plasma 66 46 - 142 U/L 02/18/2025 9:[address] [facility] Total Bilirubin, Plasma 0.3 0.2 - 1.1 mg/dL 02/18/2025 9:[address] [facility] eGFRcr 76.1 mL/min/1.7 3m*2 02/18/2025 9:[address] [facility] Comment:Reported eGFRcr in m L/min/1.73m2 is based the CKD-EPI 2020 equation that does not use a race coefficient. Blood Venous blood specimen / Unknown Venipuncture / Unknown 02/18/2025 8:30 AM EDT 02/18/2025 8:36 AM EDT Ranjith Daniels MD LAB BLOOD ORDERABLES Final Resul t [facility] [address] [place] [address] * (ABNORMAL) CBC and Differential (02/18/2025 8:30 AM EDT) WBC Count 10.35(H) 3.70 - 10.30 10*3/uL LAB HEMATOLOGY METHOD 02/18/2025 8:[address] [facility] RBC Count 3.70(L) 3.90 - 5.20 10*6/uL LAB HEMATOLOGY METHOD 02/18/2025 8:[address] [facility] HGB 11.3 11.2 - 15.7 g/dL LAB HEMATOLOGY METHOD 02/18/2025 8:[address] [facility] HCT 33.2(L) 34.0 - 45.0 % LAB HEMATOLOGY METHOD 02/18/2025 8:[address] [facility] Platelet Count 201 155 - 369 10*3/uL LAB HEMATOLOGY METHOD 02/18/2025 8:[address] [facility] MCV 90 79 - 98 fL LAB HEMATOLOGY METHOD 02/18/2025 8:[address] [facility] MCH 30.5 26.0 - 32.0 pg LAB HEMATOLOGY METHOD 02/18/2025 8:[address] [facility] MCHC 34.0 30.7 - 35.5 g/dL LAB HEMATOLOGY METHOD 02/18/2025 8:[address] [facility] RDW 13.2 11.5 - 14.5 % LAB HEMATOLOGY METHOD 02/18/2025 8:[address] [facility] MPV 8.8 8.8 - 12.5 fL LAB HEMATOLOGY METHOD 02/18/2025 8:[address] [facility] nRBC 0.0 <=0.0 per 100 WBCs LAB HEMATOLOGY METHOD 02/18/2025 8:[address] [facility] Differential Type Automated LAB HEMATOLOGY METHOD 02/18/2025 8:[address] [facility] Neutrophils % 86 % LAB HEMATOLOGY METHOD 02/18/2025 8:[address] [facility] Lymphocytes % 9 % LAB HEMATOLOGY METHOD 02/18/2025 8:[address] [facility] Monocytes % 5 % LAB HEMATOLOGY METHOD 02/18/2025 8:[address] [facility] Eosinophils % 0 % LAB HEMATOLOGY METHOD 02/18/2025 8:[address] [facility] Basophils % 0 % LAB HEMATOLOGY METHOD 02/18/2025 8:[address] [facility] Immature Granulocytes % 0 % LAB HEMATOLOGY METHOD 02/18/2025 8:[address] [facility] Neutrophils Absolute 8.82(H) 1.60 - 6.10 10*3/uL LAB HEMATOLOGY METHOD 02/18/2025 8:[address] [facility] Lymphocytes Absolute 0.96(L) 1.20 - 3.90 10*3/uL LAB HEMATOLOGY METHOD 02/18/2025 8:[address] [facility] Monocytes Absolute 0.53 0.30 - 0.90 10*3/uL LAB HEMATOLOGY METHOD 02/18/2025 8:[address] [facility] Eosinophils Absolute 0.00 0.00 - 0.50 10*3/uL LAB HEMATOLOGY METHOD 02/18/2025 8:[address] [facility] Basophils Absolute 0.02 0.00 - 0.10 10*3/uL LAB HEMATOLOGY METHOD 02/18/2025 8:[address] [facility] Immature Granulocytes Absolute 0.02 0.00 - 0.06 10*3/uL LAB HEMATOLOGY METHOD 02/18/2025 8:[address] [facility] Blood Venous blood specimen / Unknown Venipuncture / Unknown 02/18/2025 8:30 AM EDT 02/18/2025 8:[address] [facility] - 02/18/2025 8:38 AM EDT Therapeutic decision making should be based on absolute values, rather than percentages. us Ranjith Daniels MD LAB BLOOD ORDERABLES Final Resul t [facility] [address] [place] [address] documented in this encounter Visit Diagnoses Diagnosis Fall- Primary Unspecified fall 3-part fracture of surgical neck of right humerus, initial encounter for closed fracture Fall, initial encounter Fx humeral neck, right, closed, initial encounter Closed nondisplaced fracture of nasal bone, initial encounter Fracture of surgical neck of right humerus Face lacerations Open wound of face, unspecified site, without mention of complication Nasal bone fracture Hypothyroidism Unspecified hypothyroidism GERD (gastroesophageal reflux disease) Esophageal reflux Anxiety Anxiety state, unspecified Hyperlipemia Other and unspecified hyperlipidemia documented in this encounter Administered Medications Inactive Administered Medications - up to 3 most recent administrations Medication Order MAR Action Action Date Dose Rate Site acetaminophen (Tylenol) tablet 650 mg 650 mg, Oral, Every 6 hours PRN, Starting on Fri02/18/25 at 0814, Until Fri02/18/25 at 1732, STAT, Moderate/Severe Pain > or =3: CPOT; > or =4: FLACC, PAINAD, NPASS, NRS, Ivy-Olea Faces; > or =5: DVPRS, NIPS Given 02/18/2025 8:53 AM EDT 650 mg fentaNYL (Sublimaze) 50 mcg/mL injection - Pyxis Override Pull 1 dose, Starting on Fri02/18/25 at 0812, Until Fri02/18/25 at 0814 fentaNYL (Sublimaze) injection 50 mcg 50 mcg, Intravenous, Once, 1 dose, On Fri02/18/25 at 0805, STAT Given 02/18/2025 8:14 AM EDT 50 mcg HYDROmorphone (Dilaudid) 1 MG/ML injection - Pyxis Override Pull 1 dose, Starting on Fri02/18/25 at 1041, Until Fri02/18/25 at 1043 HYDROmorphone (Dilaudid) injection 0.5 mg 0.5 mg, Intravenous, Every 2 hour PRN, Starting on Fri02/18/25 at 1027, Until Fri02/18/25 at 1732, STAT, severe pain Given 02/18/2025 2:00 PM EDT 0.5 mg Given 02/18/2025 10:43 AM EDT 0.5 mg methocarbamol (Robaxin) tablet 750 mg 750 mg, Oral, Once, 1 dose, On Fri02/18/25 at 0825, STAT Given 02/18/2025 8:53 AM EDT 750 mg ondansetron (Zofran) 4 MG/2ML injection - Pyxis Override Pull 1 dose, Starting on Fri02/18/25 at 0811, Until Fri02/18/25 at 0814 ondansetron (Zofran) injection 4 mg 4 mg, Intravenous, Once, 1 dose, On Fri02/18/25 at 0805, STAT Given 02/18/2025 8:14 AM EDT 4 mg documented in this encounter Active and Recently Administered Medications Times are shown in EDT. Scheduled Medication Order 02/16/2025 02/17/2025 02/18/2025 fentaNYL (Sublimaze) injection 50 mcg (COMPLETED) 50 mcg, Intravenous, Once, 1 dose, On Fri02/18/25 at 0805, STAT 0814 (Given - Provid er: Cecilia Castro RN) methocarbamol (Robaxin) tablet 750 mg (COMPLETED) 750 mg, Oral, Once, 1 dose, On Fri02/18/25 at 0825, STAT 0853 (Given - Provid er: Susy Spicer RN) ondansetron (Zofran) injection 4 mg (COMPLETED) 4 mg, Intravenous, Once, 1 dose, On Fri02/18/25 at 0805, STAT 0814 (Given - Provid er: Cecilia Castro RN) PRN Medication Order 02/16/2025 02/17/2025 02/18/2025 acetaminophen (Tylenol) tablet 650 mg 650 mg, Oral, Every 6 hours PRN, Starting on Fri02/18/25 at 0814, Until Fri02/18/25 at 1732, STAT, Moderate/Severe Pain > or =3: CPOT; > or =4: FLACC, PAINAD, NPASS, NRS, Ivy-Olea Faces; > or =5: DVPRS, NIPS 0853 (Given - Provid er: Susy Spicer RN) HYDROmorphone (Dilaudid) injection 0.5 mg 0.5 mg, Intravenous, Every 2 hour PRN, Starting on Fri02/18/25 at 1027, Until Fri02/18/25 at 1732, STAT, severe pain 1043 (Given - Provid er: Sharon Vizcarra RN)1400 (Given - Provider: Sharon Vizcarra RN) documented in this encounter Care Teams Inspector Packer [employer] Relationship Specialty Start Date End Date Jamilah Vanegas, SCREW MACHINE OPERATOR SWISS TYPE [address] [place] [address] PCP - General 02/18/25 documented as of this encounter
--- OUTSIDE RECORDS SUMMARY | 2025-02-22 08:39 | XMS_ITS | Encounter Summary ---
Author Organization Healthcare Address [address] [place] [address] Care Team Providers Care Territory Sales Representative Name Role Phone Jamilah Vanegas TIBURCIO Primary Care Provider +1- [phone] Encounter Details Date Type Department Care Team (Latest Contact Info) Description 02/22/2025 9:39 AM EDT - 02/22/2025 11:59 PM EDT Hospital En[facility] [place] [facility] [address] [place] [address] Right shoulder pain, unspecified chronicity Discharge Disposition: Home or Self Care Social History Tobacco Use Types Packs/Day Years Used Date Smoking Tobacco: Never Passive Smoke Exposure: Never Smokeless Tobacco: Never Alcohol Use Standard Drinks/Week Comments Never 0 (1 standard drink = 0.6 oz pur e alcohol) Comments Unknown Sex and Gender Information Value Date Recorded Sex Assigned at Not on file Legal Sex Female 8:36 PM EDT Gender Identity Not on file Sexual Orientation Not on file documented as of this encounter Medications at Time of Discharge bacitracin 500 UNIT/GM ointment Please use over facial lacerations 14 g 02/18/2025 cycloSPORINE (Restasis) 0.05 % ophthalmic emulsion 02/06/2025 estradiol (Vivelle-DOT) 0.05 MG/24HR 11/17/2024 gabapentin (Neurontin) 100 MG capsule Take 1 capsule by mouth 2 times a day. 60 capsule 02/22/2025 methocarbamol (Robaxin) 500 MG tablet Take 1 [...] tablet 11/10/2024 Synthroid 75 MCG tablet 09/24/2024 documented as of this encounter Plan of Treatment Not on file documented as of this encounter Procedures Procedure Name Priority Date/Time Associated Diagnosis Comments XR SHOULDER RIGHT 2+ VIEWS Routine 02/22/2025 10:40 AM EDT Right shoulder pain, unspecified chronicity documented in this encounter Results * XR Shoulder Right 2+ Views (02/22/2025 10:40 AM EDT) Anatomical Region Laterality Modality Upper Extremities, Shoulder Right Digi dylan Radiography Impressions 02/22/2025 4:34 PM EDT Demonstration of comminuted humeral head fracture involving the greater tuberosity and surgical neck interval development of inferior subluxation of the humeral head relation to the glenoid fossa. CRITICAL RESULT: No. COMMUNICATION: Per this written report. By electronically signing this report, I, the attending physician, attest that I have personally reviewed the images/data for the above examination(s) and agree with the final edited report. Drafted by Champ Nation MD on 02/22/2025 11:05 AM Final report signed by Doug Stack MD on 02/22/2025 4:34 PM Narrative 02/22/2025 4:34 PM EDT CLINICAL INDICATION: pain TECHNIQUE: XR SHOULDER RIGHT 2+ VIEWS COMPARISON: Outside CT of the right shoulder from 02/18/2025, radiographs 02/18/2025 FINDINGS: Redemonstrated comminuted and impacted fracture of the right humeral neck and comminuted and moderately displaced avulsion fracture involving the greater tuberosity with multiple small fragments. Compared to prior CT, there is increased inferior subluxation of the humeral head relative to the glenoid fossa, with up to approximately 2 cm of displacement along the superior joint space. The acromioclavicular joint appears intact. Procedure Note Doug Stack MD - 02/22/2025 CLINICAL INDICATION: pain TECHNIQUE: XR SHOULDER RIGHT 2+ VIEWS COMPARISON: Outside CT of the right shoulder from 02/18/2025, radiographs 02/18/2025 FINDINGS: Redemonstrated comminuted and impacted fracture of the right humeral neckand comminuted and moderately displaced avulsion fracture involving thegreater tuberosity with multiple small fragments. Compared to prior CT,there is increased inferior subluxation of the humeral head relative tothe glenoid fossa, with up to approximately 2 cm of displacement along thesuperior joint space. The acromioclavicular joint appears intact. IMPRESSION: Demonstration of comminuted humeral head fracture involving the greatertuberosity and surgical neck interval development of inferior subluxationof the humeral head relation to the glenoid fossa. CRITICAL RESULT: No. COMMUNICATION: Per this written report. By electronically signing this report, I, the attending physician, attbuckthat I have personally reviewed the images/data for the aboveexamination(s) and agree with the final edited report. Drafted by Champ Nation MD on 02/22/2025 11:05 AM Final report signed by Doug tSack MD on 02/22/2025 4:34 PM Nicho Thomas MD IMG XR PROCEDURES Final Resu lt documented in this encounter Visit Diagnoses Diagnosis Right shoulder pain, unspecified chronicity documented in this encounter Additional Health Concerns Assessment Noted Time A fall risk assessment has been complete d for the patient 02/22/2025 11:00 AM EDT A Body Mass Index follow-up plan has been documented for the patient 02/22/2025 12:11 PM EDT documented as of this encounter Care Teams Territory Sales Representative Relationship Specialty Start Date End Date Jamilah Vanegas APRN [address] [place] [address] PCP - General 02/18/25 documented as of this encounter
--- OUTSIDE RECORDS SUMMARY | 2025-02-22 09:00 | XMS_ITS | Encounter Summary ---
Author Organization Healthcare Address [address] [place] [address] Care Team Providers Care Cut Press Operator Name Role Phone Jamilah Vanegas TIBURCIO Primary Care Provider +1- [phone] Reason for Referral * Consultation (Routine) - Authorized Specialty Diagnoses / Procedures Referred By Sarah velez Referred To Contact Physical Therapy Diagnoses Acute pain of right shoulder Closed 3-part fracture of surgical neck of right humerus, initial encounter Doug Nuñez PA [address] [address] Phone: tel: fax: Referral ID Status Reason Start Date Expiration Date Visits Requested Visits Authorized [id number] Authorized Consult and Treat 02/22/2025 08/24/2026 1 1 Reason for Visit * Reason Comments Consult * Consultation (Routine) - Closed Specialty Diagnoses / Procedures Referred By Sarah velez Referred To Contact Orthopaedic Surgery Diagnoses 3-part fracture of surgical neck of right humerus, initial encounter for closed fracture Janis Rojas PA [address] [address] Phone: tel: fax: Nicho Thomas MD [address] [address] Phone: tel: fax: Referral ID Status Reason Start Date Expiration Date Visits Re quested Visits Authorized [id number] Closed 02/18/2025 08/20/2026 1 1 Encounter Details Date Type Department Care Team (Late st Contact Info) Description 02/22/2025 10:00 AM EDT Consult [facility] Orthopaedic Surgery & Sports Medicine [address] [place] [address] Nicho Thmoas MD [address] [place] [address] Acute pain of right shoulder (Primary Dx); Closed 3-part fracture of surgical neck of right humerus, initial encounter Social History Tobacco Use Types Packs/Day Years Used Date Smoking Tobacco: Never Passive Smoke Exposure: Never Smokeless Tobacco: Never Tobacco Cessation:Counseling Given: Not Answered Alcohol Use Standard Drinks/Week Comments Never 0 [...] Sign Reading Time Taken Comments Blood Pressure 163/78 02/22/2025 11:01 AM EDT Pulse 70 02/22/2025 11:01 AM EDT Temperature - - Respiratory Rate - - Oxygen Saturation 99% 02/22/2025 11:01 AM EDT Inhaled Oxygen Concentration - - Weight 59 kg (130 lb) 02/22/2025 11:01 AM EDT Height 157.5 cm (5' 2 ) 02/22/2025 11:01 AM EDT Body Mass Index 23.78 02/22/2025 11:01 AM EDT documented in this encounter Miscellaneous Notes * Progress Notes - Doug Nuñez PA - 02/22/2025 10:00 AM EDT Referring provider: DIANE Ngo Chief Complaint: Right proximal humerus fracture History of Present Illness: Vashti Trevizo is a 74 y.o. right hand dominant female who is new to us today. She is being seen in consultation at the request of DIANE Rojas for a right proximalhumerus fracture. She reports getting out of bed use the restroom very early in the morning on 02/18/2025. Unfortunately, she fell and hit her right shoulder and head. She was seen in the emergency department at the [facility] at which time she was diagnosed with a right proximal humerus fracture. She was provided a collar and cuff for immobilization. She is now 4 days status post right proximal humerus fracture. She rates her pain a 2/10 at rest, but states it can be a 10/10 with movement. She is taking leftover oxycodone 5 mg from the emergency department as well as Robaxin 500 mg. She is also taking Advil or Tylenol as needed for pain relief.She has been compliant with collar and cuff immobilization. She denies any numbness or paresthesias. Review of Systems: Constitutional: Negative Eyes: Negative ENT: Negative Cardiovascular: Negative Respiratory: Negative Gastrointestinal: Negative Genitourinary: Negative Musculoskeletal: What was mentioned in the HPI Integumentary: Negative Neurological: Negative Hematologic/lymphatic: Negative Endocrine: Negative Psychiatric: Negative Past Medical History[1] Surgical History[2] Family History: Family History[3] Social history: Tobacco: [Denies] Alcohol: [Denies] Illicit drugs: [Denies] Drug allergies: Allergies[4] Occupation: Retired, [employer] Trevizo associate Patient lives in: [facility]/:I have reviewed the patient's medical history, surgical history, social history, and family history. These were found to be noncontributory. This is located in the patient's note and/or intheir intake form that has been scanned into their medical record at today's visit. Physical Exam: BMI is Body mass index is 23.78 kg/m??. General: Patient is pleasant and cooperative. The patient is well-developed and well-nourished. Patient is in no apparent distress Vitals: as documented in the chart for today's visit HEENT: Head: Normocephalic; Atraumatic Eyes: PERRLA; EOMI Ears: Normal external auditory canals and tympanic membranes Lungs/thorax: Normal respiratory effort, symmetric chest rise and fall Cardiovascular: skin well-perfused; capillary refill < 2 sec Skin: Visualized skin with no acute or worrisome lesions or masses Musculoskeletal: Right Shoulder: Appearance: Residual ecchymosis and edema Palpation: Mild tenderness to palpation of the proximal humerus Patient immobilized in the collar and cuff. No range of motion tested today. Right Wrist/Hand: Appearance: [Normal to visualized inspection] Patient is able to make a full fist and has full extension of all digits Wrist flexion and extension intact Cervical Spine: [Normal appearance with no skin lesions or masses.] Neurologic: Cranial nerves II-XII intact. Sensation intact in axillary, ulnar, median, and radial nerve distributions in bilateral upper extremities Psychiatric: Mental status: Patient is oriented to person, place, and time. Patient displays appropriate affect and demeanor Imaging: My independent interpretation of radiographic testing shows: Right shoulder x- rays from 02/22/2025 reveal a displaced proximal humerus fracture involving the surgical neck and greater tuberosity. There has been inferior migration of the humeral head with anterior displacement and impaction of the humeral shaft. The articular surfaces appear adequately aligned. Notes reviewed: Emergency department notes from 02/18/2025 Results of tests reviewed: previous radiographs Assessment/Plan: Acute pain of right shoulder Closed 3-part fracture of surgical neck of right humerus, initial encounter Vashti Trevizo is a 74 y.o. right hand dominant female who is now 4 days status post rightproximal humerus fracture. She rates her pain a 2/10 at rest, but states it can be a 10/10 with movement. She is taking leftover oxycodone 5 mg from the emergency department as well as Robaxin 500 mg. She is also taking Advil or Tylenol as needed for pain relief. She has been compliant with collar and cuff immobilization. She denies any numbness or paresthesias. Radiographs reveal a displaced 3 part proximal humerus fracture. The articular surfaces are overall adequately aligned. We discussed treatment options in detail to include continued non operative management versus operative intervention. Operative options discussed today included a right reverse total shoulder arthroplasty as the most predictable prognostic outcome. We will trial non operative management. We will provide a prescription for gabapentin 100 mg twice daily. We also discussed cryotherapy. We will provide an order forher to begin gentle progressive range of motion therapy at the 4 week post injury tino. She is to continue collar and cuff immobilization until that time. She has elected to follow up in 6 weeks withfurther right shoulder x-rays. The patient had the opportunity to ask questions, all of which were answered to their satisfaction. Kind Regards, Doug Nuñez PA-C, MSPAS Department of Orthopedic Surgery [facility] [1] Past Medical History: Diagnosis Date GERD (gastroesophageal reflux disease) Hyperlipidemia Hypertension Hypothyroidism [2] History reviewed. No pertinent surgical history. [3] History reviewed. No pertinent family history. [4] Allergies Allergen Reactions Erythromycin Diarrhea Penicillins Hives Cosigned by Nicho Thomas MD at 02/23/2025 8:42 AM EDT Associated attestation - Nicho Thomas MD - 02/23/2025 8:42 AM EDT I attest to being involved in providing substantive part of the medical decision making in patient care. documented in this encounter Plan of Treatment Scheduled Referrals Name Type Priority Associated Diagnoses Order Schedule Ambulatory referral to Physical Therapy Outpatient Referral Routine Acute pain of right shoulder Closed 3-part fracture of surgical neck of right humerus, initial encounter Expected: 03/17/2025 (Approximate), Expires: 08/26/2026 documented as of this encounter Results * XR Shoulder Right [...] Doug Stack MD on 02/22/2025 4:34 PM us Nicho Thomas MD IMG XR PROCEDURES Final Resu lt documented in this encounter Visit Diagnoses Diagnosis Acute pain of right shoulder- Primary Closed 3-part fracture of surgical neck of right humerus, initial encounter Right shoulder pain, unspecified chronicity documented in this encounter Additional Health Concerns Assessment Noted Time A fall risk assessment has been complete d for the patient 02/22/2025 11:00 AM EDT A Body Mass Index follow-up plan has been documented for the patient 02/22/2025 12:11 PM EDT documented as of this encounter Care Teams Cut Press Operator Relationship Specialty Start Date End Date Jamilah Vanegas APRN [address] [place] [address] PCP - General 02/18/25 documented as of this encounter
--- OUTSIDE RECORDS SUMMARY | 2025-03-16 12:44 | XMS_ITS | Clinical Summary ---
[facility] Address [address] [place] [address] Care Team Providers Care Tradeshow Worker Name Role Phone Jamilah Vanegas APRN Primary Care Provider [phone] Family History Medical History Relation Name Comments [...] of distortion are seen. Sandra Abdi APRN [facility] [place] Final Result from Last 3 Months or Most Recently Relevant to Health Maintenance Insurance [facility] [employer] PPO Care Teams Tradeshow Worker Relationship Specialty Start Date End Date Jamilah Vanegas APRN PCP - General Internal Medicine 10/24/20
--- OUTSIDE RECORDS SUMMARY | 2025-03-16 12:44 | XMS_ITS | Encounter Summary ---
Author Organization Healthcare Address [address] [place] [address] Care Team Providers Care Ultrasound Technologist Name Role Phone Jamilah Vanegas BELLY ROLLER Primary Care Provider +1- [phone] Encounter Details Date Type Department Care Team ([facility] st Contact Info) Description 02/18/2025 Orders Only External Location [address] [place] [address] Provider, External Social History Tobacco Use Types Packs/Day Years Used Date Smoking Tobacco: Never Smokeless Tobacco: Never Comments Unknown Sex and Gender Information Value Date Recorded Sex Assigned at Not on file Legal Sex Female 8:36 PM EDT Gender Identity Not on file Sexual Orientation Not on file documented as of this encounter Functional Status * Calculated C-SSRS [...] Perkins RN documented as of this encounter Plan of Treatment Not on file documented as of this encounter Procedures Procedure Name Priority Date/Time Associated Diagnosis Comments XR MSK OUTSIDE IMAGES 02/18/2025 1:55 AM EDT documented in this encounter Results * XR MSK OUTSIDE IMAGES (02/18/2025 1:55 AM EDT) Anatomical Region Laterality Modality Radiographic Joann ging 02/18/2025 1:55 AM EDT us External Provider IMG XR PROCEDURES Edited Resul t - Final documented in this encounter Visit Diagnoses Not on filedocumented in this encounter Care Teams Ultrasound Technologist Relationship Specialty Start Date End Date Jamilah Vanegas APRN [address] [place] [address] PCP - General 02/18/25 documented as of this encounter
--- OUTSIDE RECORDS SUMMARY | 2025-03-16 12:44 | XMS_ITS | Encounter Summary ---
Author Organization Healthcare Address [address] [place] [id number] Care Team Providers Care Filter Press Supervisor Name Role Phone Jamilah Vanegas APRN Primary Care Provider [phone]- [phone] Encounter Details Date Type Department Care Team (Latest Contact Info) Description 02/18/2025 Travel Social History Tobacco Use Types Packs/Day Years [...] Month) No 02/18/2025 6:00 AM EDT Aliza Perkins, JAVY 2. Non-Specific Active Suici shaji Thoughts (Past 1 Month) No 02/18/2025 6:00 AM EDT Maeve Perkins RN 6. Suicidal Behavior (Lifetime) No 6:00 AM EDT Aliza Perkins RN documented as of this encounter Plan of Treatment Not on file documented as of this encounter Visit Diagnoses Not on filedocumented in this encounter Care Teams Filter Press Supervisor Relationship Specialty Start Date End Date Jamilah Vanegas APRN [address] [place] [id number] PCP - General 02/18/25 documented as of this encounter
--- OUTSIDE RECORDS SUMMARY | 2025-03-16 12:44 | XMS_ITS | Encounter Summary ---
Author Organization Healthcare Address [address] [place] [address] Care Team Providers Care Seasonal Package Handler Name Role Phone Jamilah Vanegas INFECTION CONTROL MANAGER Primary Care Provider [phone]- [phone] Encounter Details Date Type Department Care Team ([facility] st Contact Info) Description 02/18/2025 Orders Only External Location [address] [place] [address] Provider, External Social History Tobacco Use Types [...] on filedocumented in this encounter Care Teams Seasonal Package Handler Relationship Specialty Start Date End Date aJmilah Vanegas APRN [address] [place] [address] PCP - General 02/18/25 documented as of this encounter
--- OUTSIDE RECORDS SUMMARY | 2025-03-16 12:44 | XMS_ITS | Encounter Summary ---
Author Organization Healthcare Address [address] [place] [address] Care Team Providers Care Discharge Planner Name Role Phone Jamilah Vanegas SENIOR COMPUTER SPECIALIST Primary Care Provider +1- [phone] Encounter Details Date Type Department Care Team ([facility] st Contact Info) Description 02/18/2025 Orders Only External Location [address] [place] [address] Provider, External Social History Tobacco Use Types [...] Procedure Name Priority Date/Time Associated Diagnosis Comments CT OUTSIDE IMAGES 02/18/2025 2:18 AM EDT documented in this encounter Results * CT OUTSIDE IMAGES (02/18/2025 2:18 AM EDT) Anatomical Region Laterality Modality Computed Tomogra phy 02/18/2025 2:18 AM EDT us External Provider IMG CT PROCEDURES Edited Resul t - Final documented in this encounter Visit Diagnoses Not on filedocumented in this encounter Care Teams Discharge Planner Relationship Specialty Start Date End Date Jamilah Vanegas APRN [address] [place] [address] PCP - General 02/18/25 documented as of this encounter
--- OUTSIDE RECORDS SUMMARY | 2025-03-16 12:44 | XMS_ITS | Clinical Summary ---
Author Organization Healthcare Address [address] [place] [address] Care Team Providers Care Teamcenter Consultant Name Role Phone Jamilah Vanegas TIBURCIO Primary Care Provider +1- [phone] Allergies Active Allergy Reactions Criticality Noted Date Comments Erythromycin Diarrhea Medium 02/18/2025 Penicillins Hives Medium 02/18/2025 Medications methocarbamol (Robaxin) 500 MG tablet Take 1 tablet by mouth 4 times a day as needed for muscle spasms. 40 tablet 5 Active bacitracin 500 UNIT/GM ointment Please use over facial lacerations 14 g 5 Active naloxone (Narcan) 4 mg/0.1 mL nasal spray 1. Give 1 spray in nostril for no/slow breathing or cannot wake after opioid use 2. Call 911 3. Repeat in other nostril if symptoms continue Use 1 spray in one nostril for overdose; may repeat in 2 to 3 minutes if needed 1 each 5 Active cycloSPORINE (Restasis) 0.05 % ophthalmic emulsion 5 Active estradiol (Vivelle-DOT) 0.05 MG/24HR 5 Active Synthroid 75 MCG tablet 5 Active omeprazole (PriLOSEC) [address] capsule 5 Active propranolol LA (Inderal LA) 80 MG 24 hr capsule 5 Active progesterone (Prometrium) 200 MG capsule 5 Active simvastatin (Zocor) 40 MG tablet 5 Active sertraline (Zoloft) 50 MG tablet 5 Active gabapentin (Neurontin) 100 MG capsule Take 1 capsule by mouth 2 times a day. 60 capsule 03/24/20 Active oxyCODONE (Roxicodone) 5 MG immediate release tablet Take 1 tablet by mouth every 6 hours as needed (pain) for up to 3 days. 12 tablet 02/23/20 Active Problems Problem Noted Date Diagnosed Date Acute pain of right shoulder 02/22/2025 Fracture of surgical neck of right humerus 02/18 Assessment & Plan (02/18/2025 12:34 PM EDT): ORT consulted Non-operative Placed in cuff and collar sling, NWB Will follow up outpatient Fall 02/18/2025 Assessment & Plan (02/18/2025 12:34 PM EDT): Fall OOB Face lacerations 02/18/2025 Assessment & Plan (02/18/2025 11:32 AM EDT): Lacerations lateral to left upper eyelid and nasal bridge Repaired with Dermabond at OSH Nasal bone fracture 02/18/2025 Assessment & Plan (02/18/2025 12:33 PM EDT): OMFS consulted No acute surgical intervention Outpatient follow up in 5 days Hypothyroidism 02/18/2025 Assessment & Plan (02/18/2025 11:32 AM EDT): Continue Synthroid GERD (gastroesophageal reflux disease) Assessment & Plan (02/18/2025 11:32 AM EDT): Continue Omeprazole Anxiety 02/18/2025 Assessment & Plan (02/18/2025 11:32 AM EDT): Continue Sertraline Hyperlipemia 02/18/2025 Assessment & Plan (02/18/2025 11:32 AM EDT): Continue Simvastatin Encounters Date Type Department Care Team Description 02/22/2025 10:00 AM EDT Consult [facility] Surgery [facility] [address] [place] [address] Nicho Thomas MD Acute pain of right shoulder (Primary Dx); Closed 3-part fracture of surgical neck of right humerus, initial encounter 02/22/2025 9:39 AM EDT - 02/22/2025 11:59 PM EDT Hospital Encounter [facility] [address], [address] [place] [address] Right shoulder pain, unspecified chronicity Discharge Disposition: Home or Self Care 02/22/2025 Travel 02/21/2025 Telephone [facility] manufacturing director Clinic [address] [address] Sanjeev Surgeon, 02/18/2025 5:42 AM EDT - 02/18/2025 3:32 PM EDT Emergency [facility] [address] [place] [id number] Ranjith Daniels MD Trott, Terren R, MD 3-part fracture of surgical neck of right humerus, initial encounter for closed fracture (Primary Dx); Fall, initial encounter; Fx humeral neck, right, closed, initial encounter; Closed nondisplaced fracture of nasal bone, initial encounter Discharge Disposition: Home or Self Care 02/18/2025 Travel 02/18/2025 Orders Only External Location [address] [place] [address] Provider, External 02/18/2025 Orders Only External Location [address] [place] [address] Provider, External 02/18/2025 Orders Only External Location [address] [place] [address] Provider, External 02/18/2025 Orders Only External Location [address] [place] [address] Provider, External 02/18/2025 Orders Only External Location [address] [place] [address] Provider, External 02/18/2025 Orders Only External Location [address] [place] [address] Provider, External 02/18/2025 Orders Only External Location [address] [place] [address] Provider, External from Last 3 Months Social History Tobacco Use Types Packs/Day Years [...] on file Sexual Orientation Not on file Last Filed Vital Signs Vital Sign Reading Time Taken Comments Blood Pressure 163/78 02/22/2025 11:01 AM EDT Pulse 70 02/22/2025 11:01 AM EDT Temperature 36.8 C (98.2 F) 02/18/2025 3:31 PM EDT Respiratory Rate 18 02/18/2025 3:31 PM EDT Oxygen Saturation 99% 02/22/2025 11:01 AM EDT Inhaled Oxygen Concentration - - Weight 59 kg (130 lb) 02/22/2025 11:01 AM EDT Height 157.5 cm (5' 2 ) 02/22/2025 11:01 AM EDT Body Mass Index 23.78 02/22/2025 11:01 AM EDT Plan of Treatment Health Maintenance Due Date Last Done Comments [facility]-Bone Density Scan 1952 [facility]-Depression Screening 1952 [facility]-Hepatitis C Screening 1950 [facility]-Medicare Annual Wellness (AWV) 1950 [facility]-Infant/Child/Adol SDOH Screenings 1952 [facility]- SDOH Screenings 1970 [facility]-Adult SDOH Screenings 1970 CT Colonography 1997 Colonoscopy 1997 FIT-DNA 1997 FIT 1997 FOBT 1997 Sigmoidoscopy 1997 [facility]-Colorectal Cancer Screening 1997 [facility]-Zoster Vaccines (1 of 2) 2002 [facility]-RSV Vaccine: 60+ Years or (1 - Risk 60-74 years 1-dose series) 2012 [id number] Vaccine ( season) 2025 05/09/2021, 07/12/2020 [facility]-Influenza Vaccine (#1) 2025 [facility]-Breast Cancer Screening 05/17/202605/05, 05/17/2024, 01/22/2023, Additional history exists [facility]-DTaP,Tdap,and Td Vaccines (2 - Td or Tdap) 02/18/2035 02/18/2025 [facility]-Pneumococcal Vaccine: 50+ Years Completed 06/09/2023 HPV Vaccines Aged Out No longer eligi ble based on patient's age to complete this topic [facility]-HIB Vaccines Aged Out No longer e ligible based on patient's age to complete this topic [facility]-Hepatitis A Vaccines Aged Out No longer eligible based on patient's age to complete this topic [facility]-IPV Vaccines Aged Out No longer e ligible based on patient's age to complete this topic [facility]-Rotavirus Vaccines Aged Out No lo nger eligible based on patient's age to complete this topic Procedures Procedure Name Priority Date/Time Associated Diagnosis Comments XR SHOULDER RIGHT 2+ VIEWS Routine 02/22/2025 10:40 AM EDT Right shoulder pain, unspecified chronicity XR HUMERUS LEFT 2+ VIEWS STAT 02/18/2025 10:28 AM EDT XR FOREARM LEFT 2 VIEWS STAT 02/18/2025 10:28 AM EDT XR ELBOW LEFT 3+ VIEWS STAT 10:28 AM EDT XR ELBOW RIGHT 3+ VIEWS STAT 02/18/2025 8:58 AM EDT XR HUMERUS RIGHT 2+ VIEWS STAT 02/18/2025 8:58 AM EDT XR SHOULDER RIGHT 2+ VIEWS STAT 02/18/2025 8:56 AM EDT TYPE AND SCREEN STAT 02/18/2025 8:30 AM EDT COMPREHENSIVE METABOLIC PANEL, PLASMA STAT 02/18/2025 8:30 AM EDT CBC WITH AUTO DIFFERENTIAL STAT 02/18/2025 8:[address] OUTSIDE IMAGES 02/18/2025 2:[address] OUTSIDE IMAGES 02/18/2025 2:[address] OUTSIDE IMAGES 02/18/2025 2:[address] OUTSIDE IMAGES 02/18/2025 2:1 1 AM EDT XR MSK OUTSIDE IMAGES 02/18/2025 1:55 AM EDT XR MSK OUTSIDE IMAGES 02/18/2025 1:55 AM EDT XR MSK OUTSIDE IMAGES 02/18/2025 1:55 AM EDT from Last 3 Months Results * XR Shoulder Right 2+ Views (02/22/2025 10:40 AM EDT) Only the most recent of2 resultswithin the time period is included. Anatomical Region Laterality Modality Upper Extremities, Shoulder [...] 11:05 AM Final report signed by Doug Satck MD on 02/22/2025 4:34 PM Nicho Thomas MD IMG XR PROCEDURES Final Resu lt * XR Forearm Left 2 Views (02/18/2025 [...] XR PROCEDURES Final Resul t * XR Humerus Left 2+ Views (02/18/2025 [...] electronically signing this report, I, the attending physicianjessica I have personally reviewed the images/data for [...] MD IMG XR PROCEDURES Final Result * (ABNORMAL) CBC and Differential (02/18/2025 8:30 AM EDT) WBC Count 10.35(H) 3.70 - 10.30 10*3/uL LAB HEMATOLOGY METHOD 02/18/2025 8:38 AM EDT [facility] RBC Count 3.70(L) 3.90 - 5.20 10*6/uL LAB HEMATOLOGY METHOD 02/18/2025 8:38 AM EDT [facility] HGB 11.3 11.2 - 15.7 g/dL LAB HEMATOLOGY METHOD 02/18/2025 8:38 AM EDT [facility] HCT 33.2(L) 34.0 - 45.0 % LAB HEMATOLOGY METHOD 02/18/2025 8:38 AM EDT [facility] Platelet Count 201 155 - 369 10*3/uL LAB HEMATOLOGY METHOD 02/18/2025 8:38 AM EDT [facility] MCV 90 79 - 98 fL LAB HEMATOLOGY METHOD 02/18/2025 8:38 AM EDT [facility] MCH 30.5 26.0 - 32.0 pg LAB HEMATOLOGY METHOD 02/18/2025 8:38 AM EDT [facility] MCHC 34.0 30.7 - 35.5 g/dL LAB HEMATOLOGY METHOD 02/18/2025 8:38 AM EDT [facility] RDW 13.2 11.5 - 14.5 % LAB HEMATOLOGY METHOD 02/18/2025 8:38 AM EDT [facility] MPV 8.8 8.8 - 12.5 fL LAB HEMATOLOGY METHOD 02/18/2025 8:38 AM EDT [facility] nRBC 0.0 <=0.0 per 100 WBCs LAB HEMATOLOGY METHOD 02/18/2025 8:38 AM EDT [facility] Differential Type Automated LAB HEMATOLOGY METHOD 02/18/2025 8:38 AM EDT [facility] Neutrophils % 86 % LAB HEMATOLOGY METHOD 02/18/2025 8:38 AM EDT [facility] Lymphocytes % 9 % LAB HEMATOLOGY METHOD 02/18/2025 8:38 AM EDT [facility] Monocytes % 5 % LAB HEMATOLOGY METHOD 02/18/2025 8:38 AM EDT [facility] Eosinophils % 0 % LAB HEMATOLOGY METHOD 02/18/2025 8:38 AM EDT [facility] Basophils % 0 % LAB HEMATOLOGY METHOD 02/18/2025 8:38 AM EDT [facility] Immature Granulocytes % 0 % LAB HEMATOLOGY METHOD 02/18/2025 8:38 AM EDT [facility] Neutrophils Absolute 8.82(H) 1.60 - 6.10 10*3/uL LAB HEMATOLOGY METHOD 02/18/2025 8:38 AM EDT [facility] Lymphocytes Absolute 0.96(L) 1.20 - 3.90 10*3/uL LAB HEMATOLOGY METHOD 02/18/2025 8:38 AM EDT [facility] Monocytes Absolute 0.53 0.30 - 0.90 10*3/uL LAB HEMATOLOGY METHOD 02/18/2025 8:38 AM EDT [facility] Eosinophils Absolute 0.00 0.00 - 0.50 10*3/uL LAB HEMATOLOGY METHOD 02/18/2025 8:38 AM EDT [facility] Basophils Absolute 0.02 0.00 - 0.10 10*3/uL LAB HEMATOLOGY METHOD 02/18/2025 8:38 AM EDT [facility] Immature Granulocytes Absolute 0.02 0.00 - 0.06 10*3/uL LAB HEMATOLOGY METHOD 02/18/2025 8:38 AM EDT [facility] Blood Venous blood specimen / Unknown Venipuncture / Unknown 02/18/2025 8:30 AM EDT 02/18/2025 8:36 AM EDT Narrative [facility] - 02/18/2025 8:38 AM EDT Therapeutic decision making should be based on absolute values, rather than percentages. Ranjith Daniels MD LAB BLOOD ORDERABLES Final Resul t [facility] [address] [place] [address] * Type and screen (02/18/2025 8:30 AM [...] ORDERABLES F inal Result BLOOD BANK [address] [place] [address], * (ABNORMAL) CMP (02/18/2025 8:30 AM EDT) Glucose, Plasma 128(H) 74 - 99 mg/dL 02/18/2025 9:04 AM EDT [facility] BUN, Plasma 14 8 - 23 mg/dL 02/18/2025 9:04 AM EDT [facility] Creatinine, Plasma 0.82 0.60 - 1.10 mg/dL 02/18/2025 9:04 AM EDT [facility] BUN/Creatinine Ratio 17 02/18/2025 9:04 AM EDT [facility] Sodium, Plasma 136 136 - 145 mmol/L 02/18/2025 9:04 AM EDT [facility] Potassium, Plasma 3.7 3.6 - 4.9 mmol/L 02/18/2025 9:04 AM EDT [facility] Chloride, Plasma 101 97 - 107 mmol/L 02/18/2025 9:04 AM EDT [facility] CO2, Plasma 23 22 - 29 mmol/L 02/18/2025 9:04 AM EDT [facility] Anion Gap 12 6 - 16 mmol/L 02/18/2025 9:04 AM EDT [facility] Total Calcium, Plasma 8.4(L) 8.9 - 10.2 mg/dL 02/18/2025 9:04 AM EDT [facility] Total Protein 6.8 6.3 - 7.9 g/dL 02/18/2025 9:04 AM EDT [facility] Albumin, Plasma 4.1 3.5 - 5.2 g/dL 02/18/2025 9:04 AM EDT [facility] AST, Plasma 18 10 - 35 U/L 02/18/2025 9:04 AM EDT [facility] ALT, Plasma 11 10 - 35 U/L 02/18/2025 9:04 AM EDT [facility] Alkaline Phosphatase, Plasma 66 46 - 142 U/L 02/18/2025 9:04 AM EDT [facility] Total Bilirubin, Plasma 0.3 0.2 - 1.1 mg/dL 02/18/2025 9:04 AM EDT [facility] eGFRcr 76.1 mL/min/1.7 3m*2 02/18/2025 9:04 AM EDT [facility] Comment:Reported eGFRcr in m L/min/1.73m2 is based the CKD-EPI 2020 equation that does not use a race coefficient. Blood Venous blood specimen / Unknown Venipuncture / Unknown 02/18/2025 8:30 AM EDT 02/18/2025 8:36 AM EDT Ranjith Daniels MD LAB BLOOD ORDERABLES Final Resul t [facility] [address] [place] [address] * CT OUTSIDE IMAGES (02/18/2025 2:18 AM EDT) Only the most recent of4 resultswithin the time period is included. Anatomical Region Laterality Modality Computed Tomogra phy 02/18/2025 2:18 AM EDT us External Provider IMG CT PROCEDURES Edited Resul t - Final * XR MSK OUTSIDE IMAGES (02/18/2025 1:55 AM EDT) Only the most recent of3 resultswithin the time period is included. Anatomical Region Laterality Modality Radiographic Joann ging 02/18/2025 1:55 AM EDT us External Provider IMG XR PROCEDURES Edited Resul t - Final from Last 3 Months Insurance [facility] MEDICARE Care Teams Teamcenter Consultant Relationship Specialty Start Date End Date Jamilah Vanegas APRN [address] [place] [address] PCP - General 02/18/25
--- OUTSIDE RECORDS SUMMARY | 2025-03-16 12:44 | XMS_ITS | Encounter Summary ---
Author Organization Healthcare Address [address] [place] [id number] Care Team Providers Care Dam Tender Assistant Name Role Phone Jamilah Vanegas RN FAMILY PRACTICE Primary Care Provider +1- [phone] Encounter Details Date Type Department Care Team (Latest Contact Info) Description 02/22/2025 Travel Social History Tobacco Use Types Packs/Day [...] on file documented as of this encounter Plan of Treatment Not on file documented as of this encounter Visit Diagnoses Not on filedocumented in this encounter Additional Health Concerns Assessment Noted Time A fall risk assessment has been complete d for the patient 02/22/2025 11:00 AM EDT A Body Mass Index follow-up plan has been documented for the patient 02/22/2025 12:11 PM EDT documented as of this encounter Care Teams Dam Tender Assistant Relationship Specialty Start Date End Date Jamilah Vanegas APRN [address] [place] [address] PCP - General 02/18/25 documented as of this encounter
--- OUTSIDE RECORDS SUMMARY | 2025-03-16 12:44 | XMS_ITS | Patient Health Record ---
Author Organization [facility] Address [address] [place] [address] Care Team Providers Care Office Electrician Name Role Phone Doris Valenzuela Unavailable [phone] Allergies Allergen (clinical drug ingredient) Drug/Non Drug Allergy documented on EMR Reaction Allergy Type Onset Date Status PENICILLIN V POTASSIUM (PENICILLIN V POTASSIUM TAB Unspecified Drug Allergy 05/29/2020 Active Reason For Referral No Information Problems Problem Type SNOMED Code ICD Code Onset Dates Problem Status W/U Status Risk Notes Problem Gynecological examination normal ([id number] ) Cervical smear, as part of routine [...]
--- OUTSIDE RECORDS SUMMARY | 2025-03-16 12:44 | XMS_ITS | Encounter Summary ---
Author Organization Healthcare Address [address] [place] [address] Care Team Providers Care Log Pond Worker Name Role Phone Jamilah Vanegas FINAL FINISHER FORGING DIES Primary Care Provider +1- [phone] Encounter Details Date Type Department Care Team ([facility] st Contact Info) Description 02/18/2025 Orders Only External Location [address] [place] [address] Provider, External Social History Tobacco Use Types [...] Associated Diagnosis Comments CT OUTSIDE IMAGES 02/18/2025 2:13 AM EDT documented in this encounter Results * CT OUTSIDE IMAGES (02/18/2025 2:13 AM EDT) Anatomical Region Laterality Modality Computed Tomogra phy 02/18/2025 2:13 AM EDT us External Provider IMG CT PROCEDURES Edited Resul t - Final documented in this encounter Visit Diagnoses Not on filedocumented in this encounter Care Teams Log Pond Worker Relationship Specialty Start Date End Date Jamilah Vanegas APRN [address] [place] [address] PCP - General 02/18/25 documented as of this encounter
--- OUTSIDE RECORDS SUMMARY | 2025-03-16 12:44 | XMS_ITS | Encounter Summary ---
Author Organization Healthcare Address [address] [place] [address] Care Team Providers Care Service Employee Name Role Phone Jamilah Vanegas SEWING MACHINE TESTER Primary Care Provider +1- [phone] Encounter Details Date Type Department Care Team ([facility] st Contact Info) Description 02/18/2025 Orders Only External Location [address] [place] [address] Provider, External Social History Tobacco Use Types [...] Associated Diagnosis Comments CT OUTSIDE IMAGES 02/18/2025 2:16 AM EDT documented in this encounter Results * CT OUTSIDE IMAGES (02/18/2025 2:16 AM EDT) Anatomical Region Laterality Modality Computed Tomogra phy 02/18/2025 2:16 AM EDT us External Provider IMG CT PROCEDURES Edited Resul t - Final documented in this encounter Visit Diagnoses Not on filedocumented in this encounter Care Teams Service Employee Relationship Specialty Start Date End Date Jamilah Vanegas APRN [address] [place] [address] PCP - General 02/18/25 documented as of this encounter
--- OUTSIDE RECORDS SUMMARY | 2025-03-16 12:44 | XMS_ITS | Encounter Summary ---
Author Organization Healthcare Address [address] [place] [address] Care Team Providers Care Assembly Leader Name Role Phone Jamilah Vanegas SHEET TAKER Primary Care Provider +1- [phone] Encounter Details Date Type Department Care Team ([facility] st Contact Info) Description 02/18/2025 Orders Only External Location [address] [place] [address] Provider, External Social History Tobacco Use Types [...] on filedocumented in this encounter Care Teams Assembly Leader Relationship Specialty Start Date End Date Jamilah Vanegas APRN [address] [place] [address] PCP - General 02/18/25 documented as of this encounter
--- OUTSIDE RECORDS SUMMARY | 2025-03-16 12:44 | XMS_ITS | Encounter Summary ---
Author Organization Healthcare Address [address] [place] [address] Care Team Providers Care Sign Carpenter Name Role Phone Jamilah Vanegas APRN Primary Care Provider +1- [phone] Encounter Details Date Type Department Care Team (Late st Contact Info) Description 02/21/2025 Telephone [facility] [address] [address] Sanjeev Surgeon, [address] [place], [place] [id number] Social History Tobacco Use Types Packs/Day Years Used Date Smoking Tobacco: Never Smokeless Tobacco: Never Comments Unknown Sex and Gender Information Value Date Recorded Sex Assigned at Not on file Legal Sex Female 8:36 PM EDT Gender Identity Not on file Sexual Orientation Not on file documented as of this encounter Miscellaneous Notes * Telephone Encounter - Annie Yeh - 02/21/2025 9:11 AM EDT Called pt to schedule ED follow up for nasal fx, pt answered. She stated that her nose feels fine and her main concern is her shoulders, which she has an appt for tomorrow. Explained that if she needs a follow up in the future, to call us back. documented in this encounter Plan of Treatment Not on file documented as of this encounter Visit Diagnoses Not on filedocumented in this encounter Care Teams Sign Carpenter Relationship Specialty Start Date End Date Jamilah Vanegas APRN [address] [place] [address] PCP - General 02/18/25 documented as of this encounter
--- OUTSIDE RECORDS SUMMARY | 2025-03-16 12:44 | XMS_ITS | Encounter Summary ---
Author Organization Healthcare Address [address] [place] [address] Care Team Providers Care Senior Product Engineer Name Role Phone Jamilha Vanegas YACHT HAND Primary Care Provider +1- [phone] Encounter Details Date Type Department Care Team ([facility] st Contact Info) Description 02/18/2025 Orders Only External Location [address] [place] [address] Provider, External Social History Tobacco Use Types [...] Associated Diagnosis Comments CT OUTSIDE IMAGES 02/18/2025 2:11 AM EDT documented in this encounter Results * CT OUTSIDE IMAGES (02/18/2025 2:11 AM EDT) Anatomical Region Laterality Modality Computed Tomogra phy 02/18/2025 2:11 AM EDT us External Provider IMG CT PROCEDURES Edited Resul t - Final documented in this encounter Visit Diagnoses Not on filedocumented in this encounter Care Teams Senior Product Engineer Relationship Specialty Start Date End Date Jamilah Vanegas APRN [address] [place] [address] PCP - General 02/18/25 documented as of this encounter
--- NOTE | 2025-03-16 12:45 | XR_ITS ---
FINAL REPORT CLINICAL HISTORY: f/u fracture fall 4 weeks ago COMPARISON: None FINDINGS: RIGHT HUMERUS: Two images of the right humerus were obtained. No prior films are available for comparison purposes. There is a comminuted fracture of the humeral head and neck. There is mild displacement of the fracture fragments with some callus formation noted. Curvilinear calcification projects over the central glenoid, and intra-articular fracture fragment is questioned. No dislocation is noted. IMPRESSION: Mildly displaced healing fracture of the proximal humerus. Reviewed, Interpreted and Dictated by Lala Sinclair MD Transcribed by Reyna Peck Authenticated and [facility]
== END 2025-03-16 23:59 | disposition home or self-care (01) ==
LOC: RAD 12:41
PROVIDERS: PCP Nurse Practitioner Family; Visit Provider Nurse Practitioner Family
DX: S42.201D Unspecified fracture of upper end of right humerus, subsequent encounter for fracture with routine healing (principal); X58.XXXD Exposure to other specified factors, subsequent encounter
CPT/HCPCS: 73060